=== PATIENT | female | born 1990 | race Caucasian/White ===

== ENCOUNTER 2017-01-12 13:51 | Observation (INO) | payer OTHER ==
[~2017-01-12] VITALS: Ht 160 cm; Wt 54.0 kg
[~2017-01-12 13:51] MED LIST: HYDR50TA94 PO; TRAZ100T4 PO; VIST50CA PO
[2017-01-12 14:29] VITALS: BP 130/86; PULSE 80; RESP 16; TEMP 98.5; O2SAT 98
[2017-01-12] MEDS ORDERED: SODIUM CHLOR 0.9% 1000 ML INJ 1,000 ML IV SCH (14:38)
[2017-01-12] MEDS ORDERED: CLINDAMYCIN INJ 600 MG in SODIUM CHLORIDE 0.9% INJ 100 ML IV ONE (14:45)
--- NOTE | 2017-01-12 14:45 | PD ---
HPI Chief Complaint: Medical Clearance Time Seen by Provider: 14:35 Travel History International Travel<30 days: No Contact w/Intl Traveler<30days: No Traveled to known affect area: No History of Present Illness HPI This patient was examined in the presence of female nurse. 26-year-old female with history of IV drug abuse presents under exparte initiated by banking specialist. According to the paperwork the patient has been depressed in regards to her drug abuse. She has been abusing drugs for almost 10 years according to her paperwork, was in treatment from July 2016 of October 2016 but she recently started using drugs again. She denies feeling suicidal but she does endorse depression secondary to her IV drug abuse. She is complaining of right forearm pain which started yesterday after she injected drugs and right forearm. Pain is aggravated by movements at the elbow. Denies any drainage, fevers or chills. No other complaints. PFSH Past Medical History Hx Anticoagulant Therapy: No ADHD: Yes Arthritis: No Asthma: No Blood Disorders: No Bipolar Disorder: Yes Anxiety: Yes Depression: Yes Heart Rhythm Problems: No Cancer: No Cardiovascular Problems: No High Cholesterol: No Chemotherapy: No Chest Pain: No Congestive Heart Failure: No COPD: No Cerebrovascular Accident: No Diabetes: No Diminished Hearing: No Endocrine: No Gastrointestinal Disorders: Yes GERD: No Genitourinary: No Hepatitis: Yes (C) Hiatal Hernia: No Heparin Induced Thrombocytopen: No Hypertension: No Immune Disorder: No Implanted Vascular Access Dvce: No Kidney Stones: No Musculoskeletal: No Neurologic: No Psychiatric: Yes (IVDA) Reproductive: No Respiratory: No Immunizations Current: No Migraines: No Radiation Therapy: No Renal Failure: No Seizures: No Sleep Apnea: No Thyroid Disease: No Ulcer: No PNEUMOCCOCAL Vaccine (Year): 2008 ?: Not LMP: 01/11/17 Menopausal: No : 2 Para: 1 Miscarriage: 0 : 1 Past Surgical History Abdominal Surgery: No Appendectomy: No Cardiac Surgery: No Cholecystectomy: No Ear Surgery: No Endocrine Surgery: No Eye Surgery: No Genitourinary Surgery: No Gynecologic Surgery: No Neurologic Surgery: No Oral Surgery: No Thoracic Surgery: No Other Surgery: No Social History Alcohol Use: No Tobacco Use: Yes (1 PPD) Substance Use: Yes (IV Dilaudid, crack ) Allergies-Medications (Allergen,Severity, Reaction): Coded Allergies: Vancomycin (Unverified Allergy, Severe, Itching, 09/30/16) *MDRO Multi-Drug Resistant Organism (Unverified Adverse Reaction, Severe, 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 SKIN: Warm and dry. Examination reveals multiple needle track meza to both forearms. There is some induration, edema to the skin of the right proximal forearm. There is tenderness to palpation. HEAD: Atraumatic. Normocephalic. EYES: Pupils equal and round. No scleral icterus. No injection or drainage. ENT: No nasal bleeding or discharge. Mucous membranes pink and moist. NECK: Trachea midline. No JVD. CARDIOVASCULAR: Regular rate and rhythm. No murmur appreciated. RESPIRATORY: No accessory muscle use. Clear to auscultation. Breath sounds equal bilaterally. GASTROINTESTINAL: Abdomen soft, non-tender, nondistended. Hepatic and splenic margins not palpable. MUSCULOSKELETAL: No obvious deformities. There is pain with flexion and extension at the right elbow with no obvious joint effusion. There is no axillary lymphadenopathy. 2+ radial pulse. Capillary refill less than 2 seconds all digits right hand. NEUROLOGICAL: Awake and alert. No obvious cranial nerve deficits. Motor grossly within normal limits. Normal speech. PSYCHIATRIC: Depressed, anxious, tearful. Data Data Last Documented VS Vital Signs Date Time Temp Pulse Resp B/P Pulse Ox O2 Delivery O2 Flow Rate FiO2 01/12/17 18:21 78 16 98 Room Air 01/12/17 14:29 98.5 130/86 Orders Complete Blood Count With Diff (01/12/17 14:38) Comprehensive Metabolic Panel (01/12/17 14:38) Ed Urine Pregnancytest Poc (01/12/17 14:38) Psych Screen (01/12/17 14:38) Drug Screen, Random Urine (01/12/17 14:38) Alcohol (Ethanol) (01/12/17 14:38) Lactic Acid Sepsis Protocol (01/12/17 14:38) Blood Culture (01/12/17 14:38) Sodium Chlor 0.9% 1000 Ml Inj (Ns 1000 M (01/12/17 14:38) Ct Forearm W Iv Contrast (01/12/17 ) Clindamycin Inj (Cleocin Inj) (01/12/17 14:45) Iohexol 350 Inj (Omnipaque 350 Inj) (01/12/17 16:56) Ondansetron Inj (Zofran Inj) (01/12/17 17:30) Ketorolac Inj (Toradol Inj) (01/12/17 17:45) Piperacil-Tazo 3.375 Gm Premix (Zosyn 3. (01/12/17 19:00) Us Arm Soft Tissue (01/12/17 ) Admit Order (Ed Use Only) (01/12/17 18:52) Labs Laboratory Tests Test 01/12/17 01/12/17 15:00 15:10 White Blood Count 4.5 TH/MM3 Red Blood Count 5.24 MIL/MM3 Hemoglobin 15.2 GM/DL Hematocrit 44.4 % Mean Corpuscular Volume 84.8 FL Mean Corpuscular Hemoglobin 29.0 PG Mean Corpuscular Hemoglobin 34.2 % Concent Red Cell Distribution Width 13.2 % Platelet Count 158 TH/MM3 Mean Platelet Volume 9.5 FL Neutrophils (%) (Auto) 63.5 % Lymphocytes (%) (Auto) 25.1 % Monocytes (%) (Auto) 10.5 % Eosinophils (%) (Auto) 0.6 % Basophils (%) (Auto) 0.3 % Neutrophils # (Auto) 2.9 TH/MM3 Lymphocytes # (Auto) 1.1 TH/MM3 Monocytes # (Auto) 0.5 TH/MM3 Eosinophils # (Auto) 0.0 TH/MM3 Basophils # (Auto) 0.0 TH/MM3 CBC Comment DIFF FINAL Differential Comment Sodium Level 140 MEQ/L Potassium Level 4.1 MEQ/L Chloride Level 107 MEQ/L Carbon Dioxide Level 27.2 MEQ/L Anion Gap 6 MEQ/L Blood Urea Nitrogen 7 MG/DL Creatinine 0.62 MG/DL Estimat Glomerular Filtration 118 ML/MIN Rate Random Glucose 96 MG/DL Calcium Level 9.1 MG/DL Total Bilirubin 0.4 MG/DL Aspartate Amino Transf 48 U/L (AST/SGOT) Alanine Aminotransferase 74 U/L (ALT/SGPT) Alkaline Phosphatase 69 U/L Total Protein 7.4 GM/DL Albumin 3.5 GM/DL Urine Opiates Screen POS Urine Barbiturates Screen NEG Urine Amphetamines Screen NEG Urine Benzodiazepines Screen NEG Urine Cocaine Screen POS Urine Cannabinoids Screen NEG Ethyl Alcohol Level LESS THAN 3 MG/DL Lactic Acid Level 1.1 mmol/L MDM Medical Decision Making Medical Screen Exam Complete: Yes Emergency Medical Condition: Yes Medical Record Reviewed: Yes Differential Diagnosis Abscess, cellulitis, IV infiltration, compartment syndrome Narrative Course 26 year old female history of IV drug abuse presents for medical clearance, under ex parte. She is complaining of right forearm pain since yesterday. She admits to IV drug abuse utilizing her right form. Examination reveals induration of the skin, needle track meza with no erythema of the skin itself. Plan is for basic lab work, CT of the forearm. Previous wound cultures on file here reveal MRSA susceptible to clindamycin. She is allergic to vancomycin. IV clindamycin has been ordered. CT reveals a 2 cm peripherally enhancing fluid collection in the biceps myotendinous junction likely representing an abscess with severe adjacent anterior superficial soft tissue edema. Therefore the patient will be admitted for IV antibiotic therapy. Discussed initially with hand surgeon Dr. Huynh who recommended ultrasound of the right arm, recommended orthopedist or general surgery as a consult in regards to the abscess. Discussed with on-call general surgeon Dr. Posada who recommends consult and hand surgery in regards to the abscess. Discussed with Dr. Mcbride the admitting physician who plans on consulting orthopedist as an inpatient. He is agreeable with admission. Physician Communication Physician Communication Discussed initially with hand surgeon Dr. Huynh who recommended ultrasound of the right arm, recommended orthopedist or general surgery as a consult in regards to the abscess. Discussed with on-call general surgeon Dr. Posada who recommends consult and hand surgery in regards to the abscess. Discussed with Dr. Mcbride the admitting physician who plans on consulting orthopedist as an inpatient. He is agreeable with admission. Diagnosis Primary Impression: Cellulitis of right upper extremity Additional Impression: Abscess of right upper extremity Admitting Information Admitting Physician Requests: Admit Lopez Huynh January 12, 2017 14:45 Physician Communication Physician Communication Discussed initially with hand surgeon Dr. Huynh who recommended ultrasound of the right arm, recommended orthopedist or general surgery as a consult in regards to the abscess. Discussed with on-call general surgeon Dr. Posada who recommends consult and hand surgery in regards to the abscess. Discussed with Dr. Mcbride the admitting physician who plans on consulting orthopedist as an inpatient. He is agreeable with admission. Diagnosis Primary Impression: Cellulitis of right upper extremity Additional Impression: Abscess of right upper extremity Admitting Information Admitting Physician Requests: Admit Lopez Huynh January 12, 2017 14:45
[2017-01-12 15:30] LABS: AUTOMATED NEUTROPHIL # 2.9 TH/MM3 (1.8-7.7); BASOPHIL % 0.3 % (0.0-2.0); EOSINOPHIL % 0.6 % (0.0-4.0); HEMATOCRIT 44.4 % (35.0-46.0); HEMO FLAGS DIFF FINAL; LYMPH % 25.1 % (9.0-44.0); LYMPHOCYTE # 1.1 TH/MM3 (1.0-4.8); MEAN CELL VOLUME 84.8 FL (80.0-100.0); MEAN CORPUSCULAR HGB CONC 34.2 % (32.0-36.0); MONO % 10.5 % (0.0-8.0); NEUT % 63.5 % (16.0-70.0); PLATELET COUNT 158 TH/MM3 (150-450); RED BLOOD COUNT 5.24 MIL/MM3 (4.00-5.30); RED CELL DISTRIBUTION WIDTH 13.2 % (11.6-17.2); WHITE BLOOD COUNT 4.5 TH/MM3 (4.0-11.0)
[2017-01-12 16:06] LABS: AMPHETAMINE, URINE NEG (NEG); BARBITURATES, URINE NEG (NEG); COCAINE, URINE POS (NEG)
[2017-01-12 16:13] LABS: ANION GAP 6 MEQ/L (5-15); AST (GOT) 48 U/L (15-37); BICARBONATE 27.2 MEQ/L (21.0-32.0); BLOOD UREA NITROGEN 7 MG/DL (7-18); CHLORIDE 107 MEQ/L (98-107); GLOMERULAR FILTRATION RATE 118 ML/MIN (>89); POTASSIUM 4.1 MEQ/L (3.5-5.1); SODIUM (NA) 140 MEQ/L (136-145)
[2017-01-12 16:15] LABS: ALT (GPT) 74 U/L (10-53)
[2017-01-12 16:17] LABS: ALKALINE PHOSPHATASE 69 U/L (45-117); TOTAL BILIRUBIN ADULT 0.4 MG/DL (0.2-1.0)
--- NOTE | 2017-01-12 16:43 | PD ---
Data Data Last Documented VS Vital Signs Date Time Temp Pulse Resp B/P Pulse Ox O2 Delivery O2 Flow Rate FiO2 01/12/17 14:29 98.5 80 16 130/86 98 Orders Complete Blood Count With Diff (01/12/17 14:38) Comprehensive Metabolic Panel (01/12/17 14:38) Ed Urine Pregnancytest Poc (01/12/17 14:38) Psych Screen (01/12/17 14:38) Drug Screen, Random Urine (01/12/17 14:38) Alcohol (Ethanol) (01/12/17 14:38) Lactic Acid Sepsis Protocol (01/12/17 14:38) Blood Culture (01/12/17 14:38) Sodium Chlor 0.9% 1000 Ml Inj (Ns 1000 M (01/12/17 14:38) Ct Forearm W Iv Contrast (01/12/17 ) Clindamycin Inj (Cleocin Inj) (01/12/17 14:45) Labs Laboratory Tests Test 01/12/17 01/12/17 15:00 15:10 White Blood Count 4.5 TH/MM3 Red Blood Count 5.24 MIL/MM3 Hemoglobin 15.2 GM/DL Hematocrit 44.4 % Mean Corpuscular Volume 84.8 FL Mean Corpuscular Hemoglobin 29.0 PG Mean Corpuscular Hemoglobin 34.2 % Concent Red Cell Distribution Width 13.2 % Platelet Count 158 TH/MM3 Mean Platelet Volume 9.5 FL Neutrophils (%) (Auto) 63.5 % Lymphocytes (%) (Auto) 25.1 % Monocytes (%) (Auto) 10.5 % Eosinophils (%) (Auto) 0.6 % Basophils (%) (Auto) 0.3 % Neutrophils # (Auto) 2.9 TH/MM3 Lymphocytes # (Auto) 1.1 TH/MM3 Monocytes # (Auto) 0.5 TH/MM3 Eosinophils # (Auto) 0.0 TH/MM3 Basophils # (Auto) 0.0 TH/MM3 CBC Comment DIFF FINAL Differential Comment Sodium Level 140 MEQ/L Potassium Level 4.1 MEQ/L Chloride Level 107 MEQ/L Carbon Dioxide Level 27.2 MEQ/L Anion Gap 6 MEQ/L Blood Urea Nitrogen 7 MG/DL Creatinine 0.62 MG/DL Estimat Glomerular Filtration 118 ML/MIN Rate Random Glucose 96 MG/DL Calcium Level 9.1 MG/DL Total Bilirubin 0.4 MG/DL Aspartate Amino Transf 48 U/L (AST/SGOT) Alanine Aminotransferase 74 U/L (ALT/SGPT) Alkaline Phosphatase 69 U/L Total Protein 7.4 GM/DL Albumin 3.5 GM/DL Urine Opiates Screen POS Urine Barbiturates Screen NEG Urine Amphetamines Screen NEG Urine Benzodiazepines Screen NEG Urine Cocaine Screen POS Urine Cannabinoids Screen NEG Ethyl Alcohol Level LESS THAN 3 MG/DL Lactic Acid Level 1.1 mmol/L MDM Supervised Visit with FAIZA: Yes Narrative Course The history, exam, and medical decision-making in the associated mid-level provider note were completed with my assistance. I reviewed and agree with the findings presented. I attest that I had a [id number] encounter with the patient on the same day, and personally performed and documented my assessment and findings in the medical record. *My assessment and Findings: 26 year-old woman, active IV drug use, presents for medical clearance following ex parte today. She has pain tenderness and swelling in her right arm where she was injecting. She has tenderness on the volar proximal forearm. There is no significant erythema or redness or warmth. There is no obvious fluctuance or abscess. We'll check labs, CT imaging, if negative recommend antibiotics and outpatient follow-up. She'll be medically cleared for substance abuse treatment. Procedures Procedure Narrative Ultrasound-guided peripheral IV: Nursing staff was unable to establish IV access. Patient's history of active IV drug use. Left forearm was prepped with chlorhexidine. Initial attempt was made in the volar forearm however patient stated it was too painful so it was removed. Second attempt was in the distal medial brachium. Successful placement of 20-gauge angiocatheter. Patient tolerated overall well. Fredy Woods MD January 12, 2017 16:43
[2017-01-12] MEDS ORDERED: IOHEXOL 350 MG/ML 10 ML VIAL (for RAD DIAG) IV ONE (16:56)
[2017-01-12] MEDS ORDERED: ONDANSETRON HCL 4 MG/2 ML VIAL IV PUSH ONE (17:30)
[2017-01-12] MEDS ORDERED: KETOROLAC TROMETHAMINE 30 MG/ML (IVP) VIAL IV PUSH ONE (17:45)
--- NOTE | 2017-01-12 18:05 | RADRPT ---
EXAM DATE/TIME: 01/12/2017 16:32 [facility] COMPARISON: No previous studies available for comparison. INDICATIONS : Right arm pain. IV CONTRAST: 75 cc Omnipaque 350 (iohexol) IV RADIATION DOSE: 13.29 CTDIvol (mGy) MEDICAL HISTORY : Hepatitis C. SURGICAL HISTORY : None. ENCOUNTER: Initial ACUITY: 1 day PAIN SCALE: 7/10 LOCATION: Right forearm. TECHNIQUE: Volumetric scanning of the forearm was performed. Using automated exposure control and adjustment of the mA and/or kV according to patient size, radiation dose was kept as low as reasonably achievable to obtain optimal diagnostic quality images. FINDINGS: Ill-defined superficial soft tissue edema anteriorly. 1.5 x 1.5 x 2.0 cm peripherally enhancing fluid collection at the anterior margin of the distal biceps muscle, just anterior to the proximal biceps tendon. This likely represent an abscess. All of the other muscles and tendons are within normal limi ts. Osseous structures within normal limits. CONCLUSION: 2.0 cm peripherally enhancing fluid collection the biceps myotendinous junction likely represent absc ess with severe adjacent anterior superficial soft tissue edema. Khanh Palma MD on January 12, 2017 at 17:58 Board Certified Radiologist. This report was verified electronically.
[2017-01-12 18:21] VITALS: PULSE 78; RESP 16; O2SAT 98
[2017-01-12] MEDS ORDERED: MAGNESIUM HYDROXIDE SUSP 30 ML CUP PO PRN (19:00)
[2017-01-12] MEDS ORDERED: DAPTOmycin INJ 0 MG in SODIUM CHLORIDE 0.9% INJ 100 ML IV SCH (19:00)
[2017-01-12] MEDS ORDERED: SODIUM CHLORIDE 0.9% FLUSH 10 ML FLUSH IV FLUSH PRN (19:00)
[2017-01-12] MEDS ORDERED: ONDANSETRON HCL 4 MG/2 ML VIAL IVP PRN (19:00)
[2017-01-12] MEDS ORDERED: PIPERACIL-TAZO 3.375 GM PREMIX 50 ML IV ONE (19:00)
[2017-01-12] MEDS ORDERED: SENNOSIDES 8.6 MG TAB PO PRN (19:00)
[2017-01-12] MEDS ORDERED: BISACODYL 10 MG SUPP RECTAL PRN (19:00)
[2017-01-12] MEDS ORDERED: NALOXONE HCL 0.4 MG/ML AMP IV PRN (19:00)
[2017-01-12] MEDS ORDERED: LACTULOSE SYRUP 20 GM/30 ML CUP PO PRN (19:00)
[2017-01-12 19:44] VITALS: PULSE 69; RESP 16; O2SAT 98
[2017-01-12 19:47] VITALS: BP 126/83; PULSE 78
[2017-01-12] MEDS ORDERED: cloNIDine HCL 0.1 MG TAB PO ONE (20:00)
--- NOTE | 2017-01-12 20:15 | RADRPT ---
EXAM DATE/TIME: 01/12/2017 19:45 [facility] COMPARISON: US ARM RIGHT, November 01, 2014, 7:54. INDICATIONS : Right arm abscess. MEDICAL HISTORY : Hepatitis C. ADHD. Bipolar disorder. Depression. Anxiety. IV drug use. Tobacco use. SURGICAL HISTORY : None. ENCOUNTER: Initial ACUITY: 2 days PAIN SCORE: 5/10 LOCATION: Right arm. AREA EVALUATED: Right antecubital fossa. FINDINGS: Sonographic evaluation of the antecubital fossa shows no abscess. Subcutaneous edema noted. 2 small l ymph nodes observed. Venous structures show normal compressibility. CONCLUSION: Edema without abscess. Enrico Brito Jr., MD on January 12, 2017 at 20:12 Board Certified Radiologist. This report was verified electronically.
[2017-01-12] MEDS: HEPARIN SODIUM - SQ 10,000 UNITS/ML VIAL SQ SCH (20:19)
[2017-01-12] MEDS: DOCUSATE SODIUM 50 MG/SENNA 8.6 MG TAB PO SCH (21:00)
[2017-01-12] MEDS ORDERED: DAPTOmycin INJ 300 MG in SODIUM CHLORIDE 0.9% INJ 100 ML IV SCH (21:00)
[2017-01-12 21:15] VITALS: BP 118/71
[2017-01-12 21:44] VITALS: BP 113/62; PULSE 62; RESP 17; TEMP 96.4; O2SAT 97
[2017-01-12] MEDS: SODIUM CHLORIDE 0.9% FLUSH 10 ML FLUSH IV FLUSH SCH (22:48)
[2017-01-13] MEDS ORDERED: traZODone HCL 100 MG TAB PO ONE
[2017-01-13 00:08] VITALS: BP 108/63; PULSE 68; RESP 17; TEMP 97; O2SAT 98
[2017-01-13] MEDS: ACETAMINOPHEN 325 MG TAB PO PRN (01:46)
[2017-01-13 08:00] VITALS: BP 116/79; PULSE 78; RESP 18; TEMP 97.2; O2SAT 99
[2017-01-13] MEDS: HEPARIN SODIUM - SQ 10,000 UNITS/ML VIAL SQ SCH ×2 (08:00→20:00)
[2017-01-13] MEDS: SODIUM CHLORIDE 0.9% FLUSH 10 ML FLUSH IV FLUSH SCH ×2 (09:00→18:45)
[2017-01-13] MEDS: DOCUSATE SODIUM 50 MG/SENNA 8.6 MG TAB PO SCH ×2 (09:00→20:51)
--- NOTE | 2017-01-13 09:12 | MB ---
cc: XI PACHECO DATE OF CONSULTATION 01/13/2017 CHIEF COMPLAINT Right arm pain and swelling. HISTORY OF PRESENT ILLNESS The patient is a 26-year-old white female with significant history of IV drug who was brought to the emergency department under a court order by a carton maker. She states significant history of IV drug use. She reports that she was clean between July 2016 and October of 2016 and undergoing treatment. However, she has had a recent relapse. She says she has been abusing drugs for almost 10 years and states that her right forearm started hurting one to two days ago after she injected drugs into the right arm. She denies any history of infection like this. However, she reports that she has a history of MRSA. She states that her arm hurts when she moves it. Denies any drainage, fever or chills. She reports over the past day since antibiotics have begun, that she has had significant improvement. She states that the pain has decreased significantly. She reports she is back to achieving full motion and has limited pain with palpation. Overall she feels that she is doing well as resting comfortably. PAST MEDICAL HISTORY Positive for - 1. Bipolar disorder. 2. Anxiety, depression. 3. GI disorders. 4. Hepatitis C. 5. IV drug use. PAST SURGICAL HISTORY None. SOCIAL HISTORY A current smoker and smokes one pack per day and admits to substance abuse using IV Dilaudid and crack. PAST MEDICAL HISTORY Noncontributory. ALLERGIES TO MEDICATIONS VANCOMYCIN. MDRO. MRSA. REPORTED MEDICATIONS 1. Vistaril. 2. Trazodone. 3. Hydroxyzine. For complete list of he was inpatient meds, see MAR. REVIEW OF SYSTEMS Complete nine-point review of systems was completed and negative except for what is in the HPI. PHYSICAL EXAMINATION GENERAL: Well-developed, well-nourished 26-year-old female who is resting comfortably and sleeping. HEAD: Normocephalic, atraumatic. EYES: Extraocular motions intact. Pupils equal, round, reactive to light. CRANIAL NERVES II-XII: Grossly intact. EARS: Hearing intact bilaterally. NECK: Supple. No evidence of lymphadenopathy. LUNGS: No use of accessory muscles while breathing and no audible wheezes at bedside. ABDOMEN: Soft and nontender. HEART: No grade 4 murmur present. MUSCULOSKELETAL: Right upper extremity with full motion of the shoulder, wrist and fingers and no pain. She does have full flexion and extension of the elbow with no pain. She has visible track meza along the right forearm and antecubital space. She has mild evidence of induration over the antecubital fossa. However, it is nontender. There is swelling present. There is no erythema present. No drainage present. No fluctuance noted. She has full sensation in median and ulnar nerve distributions and has full radial nerve function Left upper extremity with full motion of the shoulder, elbow, wrist and fingers and no pain with full sensation distally. Bilateral lower extremities with full motion of the hips, knees, ankles and toes and no pain with full sensation distally. IMAGING CT scan was performed of the right forearm which reveals a 2-cm possible abscess along the biceps tendon. ASSESSMENT Possible cellulitis versus abscess of the right forearm. PLAN Due to the patient's improving status and minimal discomfort and pain, I would recommend continued conservative treatment with antibiotics. At this I do not think surgical debridement is necessary. I would monitor the patient's progress with the antibiotics and if she continues to improve, would continue with antibiotic treatment with nonsurgical intervention. However, if the patient starts to progress or get worse, I would consider irrigation and debridement of the right forearm. We will follow along. As long as she is improving, nonsurgical intervention would be appropriate. Thank you for this consultation. The above dictation and the patient was reviewed and discussed with Dr. Pacheco and he does agree with the above dictation. Dictated by: Carlitos Villa PA-C Carlitos SHOEMAKER/NAREN /8:14 AM /9:01 AM
--- NOTE | 2017-01-13 10:07 | HHI.HP ---
HPI Service [facility] Hospitalists Primary Care Physician SUZY Preciado Admission Diagnosis right arm abscess, cellulitis Diagnoses: Chief Complaint: "I don;t have any arm pain this morning." Travel History International Travel<30 Days: No Contact w/Intl Traveler <30 Da: No Traveled to Known Affected Are: No History of Present Illness Ms. Goodwin is 26 yo with history of IV drug use. She denied other medical history. Ms. Goodwin was court ordered for evaluation to [facility]. Per medical records she has a 10 year history of drug abuse. She reportedly was in rehab treatment from July 2016 until October 2016. Per medical record she became depressed after recent relapse. Per records pt recently has resumed use and had identified injecting Dilaudid and crack cocaine. Medical records indicated pt developed right arm pain two days before coming to [facility] ED. Patient was encountered in her hospital room. She was awakened and said she did not have pain and declined to participate in the interview and exam process. She stated "I haven;t slept all night, can you come back later" and got up and went into the bathroom. She came back a few moments later and again asked to be seen later. When told this could not happen she laid on her left side, and minimally answered questions and allowed limited examination. She denied other health issues and denied needing to take medication for other issues. As such, a complete history and 10 pt ROS could not be obtained. Review of Systems ROS Limitations: Uncooperative, Refused Past Family Social History Past Medical History Per medical record pt has: ADHD Bipolar disorder Hepatitis C GI issues Anxiety and depression. Past Surgical History None reported. Reported Medications Pt denied home medications. Allergies: Coded Allergies: Vancomycin (Unverified Allergy, Severe, Itching, 09/30/16) *MDRO Multi-Drug Resistant Organism (Unverified Adverse Reaction, Severe, 09/30/16) MRSA Active Ordered Medications Current Medications Medications (Trade) Dose Ordered Sig/Kenrick Route Start Time Stop Time Status Last Admin (NS Flush) 2 ml UNSCH PRN IV FLUSH 01/12/17 19:00 (NS Flush) 2 ml BID IV FLUSH 01/12/17 21:00 01/12/17 22:48 (Tylenol) 650 mg Q4H PRN PO 01/12/17 19:00 01/13/17 01:46 (Zofran Inj) 4 mg Q6H PRN IVP 01/12/17 19:00 (Heparin Inj) 5,000 units Q12H SQ 01/12/17 20:00 01/12/17 20:19 (Narcan Inj) 0.4 mg UNSCH PRN IV 01/12/17 19:00 (Maryan-Colace) 1 tab BID PO 01/12/17 21:00 (Milk Of Magnesia Liq) 30 ml Q12H PRN PO 01/12/17 19:00 (Senokot) 17.2 mg Q12H PRN PO 01/12/17 19:00 (Dulcolax Supp) 10 mg DAILY PRN RECTAL 01/12/17 19:00 Lactulose 30 ml 30 ml DAILY PRN PO 01/12/17 19:00 (Cubicin Inj/NS Inj) 100 ml @ 200 mls/hr Q24H IV 01/12/17 21:00 01/12/17 22:48 Family History Pt refused to participate. Social History 10 year history of IV drug abuse-reportedly Dilaudid and Crack cocaine use. Reported to smoke 1 pack of cigarettes a day, onset age unknown. Alcohol use is denied. Physical Exam Vital Signs Vital Signs Date Time Temp Pulse Resp B/P Pulse Ox O2 Delivery O2 Flow Rate FiO2 01/13/17 08:00 97.2 78 18 116/79 99 01/13/17 00:08 97.0 68 17 108/63 98 01/12/17 21:44 96.4 62 17 113/62 97 01/12/17 21:15 68 18 118/71 98 01/12/17 19:47 78 126/83 01/12/17 19:44 69 16 98 Room Air 01/12/17 18:21 78 16 98 Room Air 01/12/17 14:29 98.5 80 16 130/86 98 Physical Exam GENERAL: This is a well-nourished, well-developed patient, in no apparent respiratory distress. SKIN: Right form arm slightly swollen, warm to the touch. Healing ecchymoses noted. Tattoos noted on various parts of her body. HEAD: Atraumatic. Normocephalic. EYES: Pupils equal round and reactive. No injection or drainage. ENT: Nose without bleeding, purulent drainage. Airway patent. NECK: Trachea midline. No meningeal signs. CARDIOVASCULAR: Regular rate and rhythm without murmurs, gallops, or rubs. RESPIRATORY: Clear to auscultation. Breath sounds equal bilaterally. No wheezes , rales, or rhonchi. GASTROINTESTINAL: Pt declined examination. MUSCULOSKELETAL: Right arm was examined, pt could bend forearm without pain. Pt noted she was unable to do so earlier in the week. Pt observed to walk to bathroom without difficulty and unassisted. NEUROLOGICAL: Pt encountered laying a bed, sleeping. She was easily woken. Agitated as evidenced by her terse comments and denial of examination and participation. Motor function grossly intact. Speech clear and fluent. Laboratory Laboratory Tests Test 01/12/17 01/12/17 15:00 15:10 White Blood Count 4.5 Red Blood Count 5.24 Hemoglobin 15.2 Hematocrit 44.4 Mean Corpuscular Volume 84.8 Mean Corpuscular Hemoglobin 29.0 Mean Corpuscular Hemoglobin 34.2 Concent Red Cell Distribution Width 13.2 Platelet Count 158 Mean Platelet Volume 9.5 Neutrophils (%) (Auto) 63.5 Lymphocytes (%) (Auto) 25.1 Monocytes (%) (Auto) 10.5 Eosinophils (%) (Auto) 0.6 Basophils (%) (Auto) 0.3 Neutrophils # (Auto) 2.9 Lymphocytes # (Auto) 1.1 Monocytes # (Auto) 0.5 Eosinophils # (Auto) 0.0 Basophils # (Auto) 0.0 CBC Comment DIFF FINAL Differential Comment Sodium Level 140 Potassium Level 4.1 Chloride Level 107 Carbon Dioxide Level 27.2 Anion Gap 6 Blood Urea Nitrogen 7 Creatinine 0.62 Estimat Glomerular Filtration 118 Rate Random Glucose 96 Calcium Level 9.1 Total Bilirubin 0.4 Aspartate Amino Transf 48 (AST/SGOT) Alanine Aminotransferase 74 (ALT/SGPT) Alkaline Phosphatase 69 Total Protein 7.4 Albumin 3.5 Urine Opiates Screen POS Urine Barbiturates Screen NEG Urine Amphetamines Screen NEG Urine Benzodiazepines Screen NEG Urine Cocaine Screen POS Urine Cannabinoids Screen NEG Ethyl Alcohol Level LESS THAN 3 Lactic Acid Level 1.1 Date/Time Procedure Status Source Growth 5/31/17 15:40 Aerobic Blood Culture Received Blood Peripheral Pending 01/12/17 15:40 Anaerobic Blood Culture Received Blood Peripheral Pending Result Diagram: 01/12/17 1500 01/12/17 1500 Imaging Last Impressions Upper Extremity Ultrasound 01/12/17 0000 Signed Impressions: Service Date/Time: Thursday, January 12, 2017 19:45 - CONCLUSION: Edema without abscess. Enrico Brito Jr., MD Upper Extremity CT 01/12/17 0000 Signed Impressions: Service Date/Time: Tuesday, January 12, 2017 16:32 - CONCLUSION: 2.0 cm peripherally enhancing fluid collection the biceps myotendinous junction likely represent abscess with severe adjacent anterior superficial soft tissue edema. Khanh Palma MD Assessment and Plan Problem List: (1) Cellulitis of right upper extremity ICD Code: L03.113 Status: Acute (2) Abscess of right upper extremity ICD Code: L02.413 Status: Acute (3) IV drug abuse ICD Code: F19.10 Status: Chronic (4) Nicotine dependence ICD Code: F17.200 Status: Acute Assessment and Plan Ms. Goodwin is 26 yo with history of IV drug use. She denied other medical history. Cellulitis of right upper extremity Abscess of the right upper extremity -Daptomycin 300 mg IV q 24 hours -warm compresses to effected area -Tylenol 650 mg po q 6hrs for pain -Labs personally reviewed from 01/12/17, elevations noted on ALT and AST, otherwise labs with WNL. -Pt declined lab draw on the morning of 01/13/17. She also declined IV access. Discussed with RN, further attempts to be made to obtain labs and IV access. -Will transition pt to oral agents as soon as possible. -Discussed case with Dr. Leblanc who advised pt be admitted for observation; order placed. IV drug Abus -Will need to watch for signs/symptoms of withdrawal from opiates and Crack cocaine. -As pt is admitted under ex parte order, psychiatry has been consulted. Nicotine dependence -Transdermal nicotine patch 21 mg q day. DVT prophylaxis: Heparin 5000 units q 12 hrs Diet: Regular Discharge: To be determined but in consideration of her court order. Attestation Patient seen and examined with Johnathan Coe PA-C. The exam, history, and the medical decision-making described in the above note were completed with the assistance of the dictating practitioner. I attest that I had a [id number] encounter with the patient on the same day, and personally performed all of the history, exam, or medical decision making. Discussed case with him thoroughly after seeing the patient, reviewed and agreed with the plan. Please see addendum in History, Physical examination and Plan. See below for any errata/ additional input: This is a 26-year-old female with history of IV drug use, presenting as an ex parte. Poor historian, presenting with right upper extremity pain for 2 days. No fever or chills. Not in distress Afebrile Right arm, mild tenderness on palpation, good range of motion with elbow flexion and extension, no palpable abscess, induration or warmth. Agree with infectious disease consultation, consult psychiatry. Seen by orthopedics, no need for surgery. Discussed with infectious disease, switched to Zyvox. Possible discharge in 1-2 days if okay with surgery and infectious disease. Discussed Condition With Pt, sitter at bedside, RN, and Dr. Leblanc. Physician Certification 2 Midnight Certification Type: Admission for Inpatient Services Order for Inpatient Services The services are ordered in accordance with Medicare regulations or non- Medicare payer requirements, as applicable. In the case of services not specified as inpatient-only, they are appropriately provided as inpatient services in accordance with the 2-midnight benchmark. Estimated LOS (days): 3 Three days is the estimated time the patient will need to remain in the hospital , assuming treatment plan goals are met and no additional complications. Post-Hospital Plan: Not yet determined Problem Qualifiers (1) Nicotine dependence: Qualified Code: F17.210 - Cigarette nicotine dependence without complication Andrew Lee Jr. Jan 13, 2017 10:07 Natalio Leblanc MD Jan 13, 2017 17:49
[2017-01-13] MEDS: NICOTINE 21 MG/24 HR PATCH T-DERMAL SCH (10:45)
[2017-01-13] MEDS ORDERED: REMOVE OLD PATCH T-DERMAL ONE (10:45)
[2017-01-13 12:00] VITALS: BP 118/84; PULSE 74; RESP 19; TEMP 96.2; O2SAT 94
[2017-01-13 16:00] VITALS: BP 124/72; PULSE 69; RESP 17; TEMP 96.5; O2SAT 99
--- NOTE | 2017-01-13 16:16 | PD.ID.CON ---
History of Present Illness Service ID Consult Requested By Reason for Consult Evaluation and Mment of possible abscess right upper extremity. Primary Care Physician SUZY Preciado Diagnoses: History of Present Illness Patient was not cooperative and therefore history, P exam and ROS is limited. History obtained by review of medical records. Ms. Goodwin was court ordered for evaluation to [facility]. Per medical records she has a 10 year history of drug abuse. She reportedly was in rehab treatment from July 2016 until October 2016. Per medical record she became depressed after recent relapse. Per records pt recently has resumed use and had identified injecting Dilaudid and crack cocaine. Medical records indicated pt developed right arm pain two days before coming to [facility] ED. ID consulted for evaluation and Mment of possible abscess RUE. Review of Systems ROS Limitations: Uncooperative, Poor Historian Past Family Social History Allergies: Coded Allergies: Vancomycin (Unverified Allergy, Severe, Itching, 09/30/16) *MDRO Multi-Drug Resistant Organism (Unverified Adverse Reaction, Severe, 09/30/16) MRSA Past Medical History ADHD Bipolar disorder Hepatitis C GI issues Anxiety and depression. Multiple abscesses of skin soft tissue. Past Surgical History ? I&D of multiple abscesses. Reported Medications Reported Meds & Active Scripts Active Reported Vistaril (Hydroxyzine Pamoate) 50 Mg Cap 50 Mg PO BID Trazodone (Trazodone HCl) 100 Mg Tab 100 Mg PO HS Hydroxyzine HCl 50 Mg Tab 50 Mg PO BID Active Ordered Medications Current Medications Medications (Trade) Dose Ordered Sig/Kenrick Route Start Time Stop Time Status Last Admin (NS Flush) 2 ml UNSCH PRN IV FLUSH 01/12/17 19:00 (NS Flush) 2 ml BID IV FLUSH 01/12/17 21:00 01/12/17 22:48 (Tylenol) 650 mg Q4H PRN PO 01/12/17 19:00 01/13/17 01:46 (Zofran Inj) 4 mg Q6H PRN IVP 01/12/17 19:00 (Heparin Inj) 5,000 units Q12H SQ 01/12/17 20:00 01/12/17 20:19 (Narcan Inj) 0.4 mg UNSCH PRN IV 01/12/17 19:00 (Maryan-Colace) 1 tab BID PO 01/12/17 21:00 (Milk Of Magnesia Liq) 30 ml Q12H PRN PO 01/12/17 19:00 (Senokot) 17.2 mg Q12H PRN PO 01/12/17 19:00 (Dulcolax Supp) 10 mg DAILY PRN RECTAL 01/12/17 19:00 Lactulose 30 ml 30 ml DAILY PRN PO 01/12/17 19:00 (Cubicin Inj/NS Inj) 100 ml @ 200 mls/hr Q24H IV 01/12/17 21:00 01/12/17 22:48 (Habitrol 21 Mg Patch.24 Hr) 1 patch DAILY T-DERMAL 01/13/17 10:45 Miscellaneous Information 1 HS T-DERMAL 01/13/17 21:00 Family History non contributory Social History 10 year history of IV drug abuse-reportedly Dilaudid and Crack cocaine use. Reported to smoke 1 pack of cigarettes a day, onset age unknown. Alcohol use is denied. Physical Exam Vital Signs Vital Signs Date Time Temp Pulse Resp B/P Pulse Ox O2 Delivery O2 Flow Rate FiO2 01/13/17 12:00 96.2 74 19 118/84 94 01/13/17 08:00 97.2 78 18 116/79 99 01/13/17 00:08 97.0 68 17 108/63 98 01/12/17 21:44 96.4 62 17 113/62 97 01/12/17 21:15 68 18 118/71 98 01/12/17 19:47 78 126/83 01/12/17 19:44 69 16 98 Room Air 01/12/17 18:21 78 16 98 Room Air Physical Exam GENERAL: This is a well-nourished, well-developed patient, in no apparent distress. SKIN: Track meza. Left UE with small coin shaped area of redness of forearm and track meza noted. ROM ok. HEAD: Atraumatic. Normocephalic. No temporal or scalp tenderness. EYES: Pupils equal round and reactive. Extraocular motions intact. No scleral icterus. No injection or drainage. ENT: Nose without bleeding, purulent drainage or septal hematoma. Throat without erythema, tonsillar hypertrophy or exudate. Uvula midline. Airway patent. NECK: Trachea midline. No JVD or lymphadenopathy. Supple, nontender, no meningeal signs. CARDIOVASCULAR: Regular rate and rhythm without murmurs, gallops, or rubs. RESPIRATORY: Clear to auscultation. Breath sounds equal bilaterally. No wheezes , rales, or rhonchi. GASTROINTESTINAL: Abdomen soft, non-tender, nondistended. MUSCULOSKELETAL: Extremities without clubbing, cyanosis, or edema. NEUROLOGICAL: Awake and alert. Grossly non focal Psych: cooperative IV line sites with no e.o infection. Laboratory Date/Time Procedure Status Source Growth 01/12/17 15:40 Aerobic Blood Culture - Preliminary Resulted Blood Peripheral NO GROWTH IN 1 DAY 01/12/17 15:40 Anaerobic Blood Culture - Preliminary Resulted Blood Peripheral NO GROWTH IN 1 DAY Result Diagram: 01/12/17 1500 01/12/17 1500 Imaging Last Impressions Upper Extremity Ultrasound 01/12/17 0000 Signed Impressions: Service Date/Time: Thursday, January 12, 2017 19:45 - CONCLUSION: Edema without abscess. Enrico Brito Jr., MD Upper Extremity CT 01/12/17 0000 Signed Impressions: Service Date/Time: Thursday, January 12, 2017 16:32 - CONCLUSION: 2.0 cm peripherally enhancing fluid collection the biceps myotendinous junction likely represent abscess with severe adjacent anterior superficial soft tissue edema. Khanh Palma MD Assessment and Plan Assessment and Plan Right UE abscess/cellulitis. IVDA Recs DC Dapto IV Start Oral zyvox Follow cultures Follow clinically. Ok to leave IV line out as at risk of using drugs in hospital. Rashaun Mcgraw. Brianna Haddad MD Jan 13, 2017 16:16
[2017-01-13] MEDS: REMOVE OLD PATCH T-DERMAL SCH (18:46)
[2017-01-13] MEDS: LINEZOLID 600 MG TAB PO SCH (21:14)
[2017-01-13] MEDS: traZODone HCL 100 MG TAB PO SCH (22:09)
--- NOTE | 2017-01-14 07:41 | PD.ORT.PN ---
Subjective Subjective Remarks Zoya was seen and examined today. She has a history of right elbow pain and swelling. She states that she currently has minimal pain. She is able to move her elbow without discomfort. Her swelling and pain is significantly improved with antibiotics. Objective Vitals Vital Signs Date Time Temp Pulse Resp B/P Pulse Ox O2 Delivery O2 Flow Rate FiO2 01/13/17 16:00 96.5 69 17 124/72 99 01/13/17 12:00 96.2 74 19 118/84 94 01/13/17 08:00 97.2 78 18 116/79 99 I/O 01/13/17 01/13/17 01/13/17 01/14/17 01/14/17 01/14/17 07:00 15:00 23:00 07:00 15:00 23:00 Intake Total 380 ml 0 ml 240 ml 360 ml Balance 380 ml 0 ml 240 ml 360 ml Intake Oral 280 ml 0 ml 240 ml 360 ml IV Total 100 ml # Voids 3 4 3 3 # Bowel Movements 0 0 0 Result Diagram: 01/12/17 1500 01/12/17 1500 Objective Remarks Examination of right arm reveals no pain with shoulder, elbow, or wrist motion. There is no fluctuance noted. She has no tenderness along the biceps tendon or antecubital fossa. She has minimal swelling. She has intact sensation in all fingers. Assessment & Plan Assessment and Plan Zoya is improving significantly with antibiotics. MRI did show a small area of fluid around the biceps tendon. Clinically she has no pain or tenderness in this area. There is no evidence of fluctuance in this region. At this point I would recommend continued conservative treatment with antibiotics. If the swelling worsens and she develops fluctuance, surgical drainage may become necessary. All questions were answered. Dayron Myers MD Jan 14, 2017 07:41
[2017-01-14 08:00] VITALS: BP 109/76; PULSE 64; RESP 16; TEMP 97.8; O2SAT 98
[2017-01-14] MEDS: HEPARIN SODIUM - SQ 10,000 UNITS/ML VIAL SQ SCH ×2 (08:00→20:00)
[2017-01-14] MEDS: DOCUSATE SODIUM 50 MG/SENNA 8.6 MG TAB PO SCH ×2 (08:49→21:00)
[2017-01-14] MEDS: LINEZOLID 600 MG TAB PO SCH ×2 (08:49→23:13)
[2017-01-14] MEDS: NICOTINE 21 MG/24 HR PATCH T-DERMAL SCH (08:50)
[2017-01-14] MEDS: REMOVE OLD PATCH T-DERMAL SCH (08:50)
[2017-01-14] MEDS: SODIUM CHLORIDE 0.9% FLUSH 10 ML FLUSH IV FLUSH SCH ×2 (08:50→21:00)
--- NOTE | 2017-01-14 11:43 | PD.CONS ---
Provisional Diagnosis Admission Date January 12, 2017 at 18:53 [place] I. Opiate use disorder [place] II. Deferred [place] III. Cellulitis History of Present Illness Service Psychiatry Consult Requested By Primary Care Physician SUZY Preciado The patient is a 26-year-old woman, domicile with her mother in [place], unemployed, single, with extensive history of IV opioids use disorder, no significant psychiatric history, no psychiatric hospitalizations, no suicide attempts. She reportedly was in rehab treatment from July 2016 until October 2016. Per medical record she became depressed after recent relapse. Per records pt recently has resumed use and had identified injecting Dilaudid and crack cocaine. Medical records indicated pt developed right arm pain two days before coming to [facility] ED. admitted this time due to Cellulitis of right upper extremity, Abscess of the right upper extremity, treated with Daptomycin 300 mg IV q 24 hours and warm compresses to effected area. Consulted to psychiatry because patient is a Mikael omalley. On psychiatric evaluation today patient is found sleeping, at the beginning very oppositional, resistant, reluctant to cooperate with a psychiatric evaluation. She repeatedly stated that she doesn't need to see a psychiatrist. With redirection patient becomes a little more open. She is states that she is here due to her cellulitis. She denies depressive symptoms, she denies hopelessness , she denies helplessness, she denies suicidal or homicidal ideation, she denies visual and auditory hallucinations. Patient declines to talk about quantification in qualification of drug use. She says that she is already in a rehabilitation program. Review of Systems Constitutional: DENIES: Diaphoretic episodes, Fatigue, Fever, Weight gain, Weight loss, Chills, Dizziness, Change in appetite, Night Sweats Eyes: DENIES: Blurred vision, Diplopia, Eye inflammation, Eye pain, Vision loss , Photosensitivity, Double Vision Ears, nose, mouth, throat: DENIES: Tinnitus, Hearing loss, Vertigo, Nasal discharge, Oral lesions, Throat pain, Hoarseness, Ear Pain, Running Nose, Epistaxis, Sinus Pain, Toothache, Odynophagia Respiratory: DENIES: Apneas, Cough, Snoring, Wheezing, Hemoptysis, Sputum production, Shortness of breath Cardiovascular: DENIES: Chest pain, Palpitations, Syncope, Dyspnea on Exertion , PND, Lower Extremity Edema, Orthopnea, Claudication Gastrointestinal: DENIES: Abdominal pain, Black stools, Bloody stools, Constipation, Diarrhea, Nausea, Vomiting, Difficulty Swallowing, Anorexia Genitourinary: DENIES: Abnormal vaginal bleeding, Dysmenorrhea, Dyspareunia, Sexual dysfunction, Urinary frequency, Urinary incontinence, Urgency, Hematuria , Dysuria, Nocturia, Vaginal discharge Musculoskeletal: DENIES: Joint pain, Muscle aches, Stiffness, Joint Swelling, Back pain, Neck pain Integumentary: DENIES: Abnormal pigmentation, Pruritus, Rash, Nail changes, Breast masses, Breast skin changes, Nipple discharge Hematologic/lymphatic: DENIES: Bruising, Lymphadenopathy Immunologic/allergic: DENIES: Eczema, Urticaria Neurologic: DENIES: Abnormal gait, Headache, Localized weakness, Paresthesias, Seizures, Speech Problems, Tremor, Poor Balance Psychiatric: DENIES: Anxiety, Confusion, Mood changes, Depression, Hallucinations, Agitation, Suicidal Ideation, Homicidal Ideation, Delusions Past Family Social History Coded Allergies: Vancomycin (Unverified Allergy, Severe, Itching, 09/30/16) *MDRO Multi-Drug Resistant Organism (Unverified Adverse Reaction, Severe, 09/30/16) MRSA Reported Medications Hydroxyzine Pamoate (Vistaril)50 Mg Cap50 Mg PO BID Ref 0 09/30/16 Trazodone 100 Mg [id number] Mg PO HS #30 TAB Ref 0 09/30/16 Hydroxyzine HCl 50 Mg Tab50 Mg PO BID Ref 0 09/30/16 Current Medications Medications (Trade) Dose Ordered Sig/Kenrick Route Start Time Stop Time Status Last Admin (NS Flush) 2 ml UNSCH PRN IV FLUSH 01/12/17 19:00 (NS Flush) 2 ml BID IV FLUSH 01/12/17 21:00 01/12/17 22:48 (Tylenol) 650 mg Q4H PRN PO 01/12/17 19:00 01/13/17 01:46 (Zofran Inj) 4 mg Q6H PRN IVP 01/12/17 19:00 (Heparin Inj) 5,000 units Q12H SQ 01/12/17 20:00 01/12/17 20:19 (Narcan Inj) 0.4 mg UNSCH PRN IV 01/12/17 19:00 (Maryan-Colace) 1 tab BID PO 01/12/17 21:00 01/14/17 08:49 (Milk Of Magnesia Liq) 30 ml Q12H PRN PO 01/12/17 19:00 (Senokot) 17.2 mg Q12H PRN PO 01/12/17 19:00 (Dulcolax Supp) 10 mg DAILY PRN RECTAL 01/12/17 19:00 (Lactulose Liq) 30 ml DAILY PRN PO 01/12/17 19:00 (Habitrol 21 Mg Patch.24 Hr) 1 patch DAILY T-DERMAL 01/13/17 10:45 Miscellaneous Information 1 HS T-DERMAL 01/13/17 21:00 (Zyvox) 600 mg Q12HR PO 01/13/17 21:00 01/14/17 08:49 (Desyrel) 100 mg HS PO 01/13/17 21:30 01/13/17 22:09 Family History She denies family psychiatric history Social History Patient was born and raised in [place], she lives in [place] with her mother, single, no kids, unemployed, highest level of education is high school Patient's Strengths (min. 2) Under observation Physical Exam Not performed due to lack of cooperation Vital Signs Vital Signs Date Time Temp Pulse Resp B/P Pulse Ox O2 Delivery O2 Flow Rate FiO2 01/14/17 08:00 97.8 64 16 109/76 98 01/12/17 19:44 Room Air I/O 01/13/17 01/13/17 01/14/17 08:00 16:00 00:00 Intake Total 380 ml 0 ml 240 ml Balance 380 ml 0 ml 240 ml Lab Results Labs Laboratory Tests Test 01/12/17 01/12/17 15:00 15:10 White Blood Count 4.5 TH/MM3 Red Blood Count 5.24 MIL/MM3 Hemoglobin 15.2 GM/DL Hematocrit 44.4 % Mean Corpuscular Volume 84.8 FL Mean Corpuscular Hemoglobin 29.0 PG Mean Corpuscular Hemoglobin 34.2 % Concent Red Cell Distribution Width 13.2 % Platelet Count 158 TH/MM3 Mean Platelet Volume 9.5 FL Neutrophils (%) (Auto) 63.5 % Lymphocytes (%) (Auto) 25.1 % Monocytes (%) (Auto) 10.5 % Eosinophils (%) (Auto) 0.6 % Basophils (%) (Auto) 0.3 % Neutrophils # (Auto) 2.9 TH/MM3 Lymphocytes # (Auto) 1.1 TH/MM3 Monocytes # (Auto) 0.5 TH/MM3 Eosinophils # (Auto) 0.0 TH/MM3 Basophils # (Auto) 0.0 TH/MM3 CBC Comment DIFF FINAL Differential Comment Sodium Level 140 MEQ/L Potassium Level 4.1 MEQ/L Chloride Level 107 MEQ/L Carbon Dioxide Level 27.2 MEQ/L Anion Gap 6 MEQ/L Blood Urea Nitrogen 7 MG/DL Creatinine 0.62 MG/DL Estimat Glomerular Filtration 118 ML/MIN Rate Random Glucose 96 MG/DL Calcium Level 9.1 MG/DL Total Bilirubin 0.4 MG/DL Aspartate Amino Transf 48 U/L (AST/SGOT) Alanine Aminotransferase 74 U/L (ALT/SGPT) Alkaline Phosphatase 69 U/L Total Protein 7.4 GM/DL Albumin 3.5 GM/DL Urine Opiates Screen POS Urine Barbiturates Screen NEG Urine Amphetamines Screen NEG Urine Benzodiazepines Screen NEG Urine Cocaine Screen POS Urine Cannabinoids Screen NEG Ethyl Alcohol Level LESS THAN 3 MG/DL Lactic Acid Level 1.1 mmol/L Mental Status Examination Appearance young woman, poorly cooperative, covered with a blanket. Speech: Hesitant Orientation: x3 Memory: Unremarkable Thought Process: Goal Directed Thought Content: Unremarkable Hallucination Type: None Attention and Concentration: Good Suicidal Ideation: No Homicidal Ideation: No Insight: Poor Affect: Irritable Mood: Angry Motor Activity: Normal gait Assessment & Plan Problem List: (1) Opiate dependence, continuous Assessment & Plan: At the moment of this evaluation the patient does not present any significant, concerning or acute objective or subjective symptomatology of depression, anxiety, janki or psychosis. Patient denies suicidal and homicidal ideation, she denies visual and auditory hallucinations. Patient is Mikael [facility] acted and committed for drug treatment. Patient was educated about following this recommendations. She does not meet criteria for psychiatric hospitalization at this moment. Patient is psychiatrically stable to be discharged to a rehabilitation program. Psychiatry is signing off. ICD Code: F11.20 Assessment & Plan Estimated LOS: Nicholas Bautista MD Jan 14, 2017 11:43
[2017-01-14 13:12] VITALS: TEMP 96.6
[2017-01-14] MEDS ORDERED: ZYVO600T PO (14:19)
--- NOTE | 2017-01-14 15:07 | HHI.DS ---
Discharge Summary Admission Date January 12, 2017 at 18:53 Discharge Date: Jan 14, 2017 Admitting Diagnosis right arm abscess, cellulitis (1) Cellulitis of right upper extremity ICD Code: L03.113 Diagnosis: Principal (2) Abscess of right upper extremity ICD Code: L02.413 Diagnosis: Secondary (3) IV drug abuse ICD Code: F19.10 Diagnosis: Secondary (4) Nicotine dependence ICD Code: F17.200 Diagnosis: Secondary Procedures None Brief History - From Admission Ms. Goodwin is 26 yo with history of IV drug use. She denied other medical history. Ms. Goodwin was court ordered for evaluation to [facility]. Per medical records she has a 10 year history of drug abuse. She reportedly was in rehab treatment from July 2016 until October 2016. Per medical record she became depressed after recent relapse. Per records pt recently has resumed use and had identified injecting Dilaudid and crack cocaine. Medical records indicated pt developed right arm pain two days before coming to [facility] ED. Patient was encountered in her hospital room. She was awakened and said she did not have pain and declined to participate in the interview and exam process. She stated "I haven;t slept all night, can you come back later" and got up and went into the bathroom. She came back a few moments later and again asked to be seen later. When told this could not happen she laid on her left side, and minimally answered questions and allowed limited examination. She denied other health issues and denied needing to take medication for other issues. As such, a complete history and 10 pt ROS could not be obtained. CBC/BMP: 01/12/17 1500 01/12/17 1500 Significant Findings Laboratory Tests Test 01/12/17 15:00 Monocytes (%) (Auto) 10.5 % (0.0-8.0) Aspartate Amino Transf 48 U/L (15-37) (AST/SGOT) Alanine Aminotransferase 74 U/L (10-53) (ALT/SGPT) Urine Opiates Screen POS (NEG) Urine Cocaine Screen POS (NEG) Imaging Last Impressions Upper Extremity Ultrasound 01/12/17 0000 Signed Impressions: Service Date/Time: Thursday, January 12, 2017 19:45 - CONCLUSION: Edema without abscess. Enrico Brtio Jr., MD Upper Extremity CT 01/12/17 0000 Signed Impressions: Service Date/Time: Thursday, January 12, 2017 16:32 - CONCLUSION: 2.0 cm peripherally enhancing fluid collection the biceps myotendinous junction likely represent abscess with severe adjacent anterior superficial soft tissue edema. Khanh Palma MD PE at Discharge Not in distress, well-nourished, looks stated age Normal rate and regular rhythm, no murmurs gallops or rubs appreciated. Clear to auscultation and symmetric bilaterally, normal respiratory effort. Normal bowel sounds, soft, non-tender, nondistended, no guarding. Extremities without clubbing, cyanosis, or edema. Right elbow, mild tenderness on palpation flexor side, range of motion is normal, no erythema, no fluctuance. No rash of generalized distribution. Skin is warm and dry. AAO x3, no cranial nerve deficits, moves all 4 extremities, no focal neurologic deficits Normal mood, appropriate affect Pt update on day of discharge Afebrile, pain is controlled, no nausea or vomiting. No diarrhea from antibiotics. Hospital Course Ms. Goodwin is 26 yo with history of IV drug use. She denied other medical history. Patient was admitted for cellulitis with abscess of the right upper extremity. CT scan of the upper extremity showed a 2 cm abscess or fluid collection near the biceps myotendinous junction. Patient was empirically started on daptomycin. Orthopedics was consulted, no surgical management was recommended. Infectious disease was consulted, recommendation is to switch to Zyvox orally for 14 days, if not available, may be on Bactrim. Discussed with case management, will try to provide Zyvox otherwise patient will be discharged on Bactrim. Patient will be discharge, she will be going to [facility] after ex parte. Patient cleared by psychiatry for discharge. She will also need to follow-up with Dr. Myers in 2 weeks. Pt Condition on Discharge: Good Discharge Disposition: Trnsfr to Other Facility Discharge Time: > 30 minutes Discharge Instructions DIET: Follow Instructions for: As Tolerated, No Restrictions Activities you can perform: Regular-No Restrictions Follow up Referrals: Orthopedics - 2 Weeks New Medications: Linezolid (Zyvox) 600 Mg Tab 600 MG PO Q12HR abscess #28 TAB Continued Medications: Hydroxyzine HCl (Hydroxyzine HCl) 50 Mg Tab 50 MG PO BID Ref 0 TAB Hydroxyzine Pamoate (Vistaril) 50 Mg Cap 50 MG PO BID Ref 0 CAP Trazodone (Trazodone) 100 Mg Tab 100 MG PO HS Control Depression #30 Ref 0 TAB Natalio Leblanc MD Jan 14, 2017 15:07
--- NOTE | 2017-01-14 16:02 | HHI.PR ---
Addendum to Inpatient Note Addendum Reason: Additional Documentation Additional Information d/w : ok to dc from ID standpoint on Zyvox oral (covers Strep and MRSA) likely organisms in this setting. Clinically responding as well per discussions. Needs follow up with ortho as outpatient May need extension of the antibiotic course, labs and imaging and follow up. Will sign off please call back if any change in clinical condition or questions. Brianna Haddad MD Jan 14, 2017 16:02
[2017-01-14 20:00] VITALS: BP 149/84; PULSE 94; RESP 20; TEMP 97.4; O2SAT 100
[2017-01-14] MEDS: traZODone HCL 100 MG TAB PO SCH (23:14)
[2017-01-15] VITALS: BP 124/69; PULSE 81; RESP 18; TEMP 97.5; O2SAT 98
[2017-01-15] MEDS: ACETAMINOPHEN 325 MG TAB PO PRN (02:21)
[2017-01-15] MEDS: HEPARIN SODIUM - SQ 10,000 UNITS/ML VIAL SQ SCH (08:00)
[2017-01-15] MEDS: LINEZOLID 600 MG TAB PO SCH (08:16)
[2017-01-15] MEDS: DOCUSATE SODIUM 50 MG/SENNA 8.6 MG TAB PO SCH (08:22)
[2017-01-15] MEDS: SODIUM CHLORIDE 0.9% FLUSH 10 ML FLUSH IV FLUSH SCH (08:22)
[2017-01-15] MEDS: NICOTINE 21 MG/24 HR PATCH T-DERMAL SCH (08:23)
== END 2017-01-15 08:41 ==
LOC: NEPD 13:51 → NEDA 18:53 → INTOOBSV 18:53 → N07A 21:39
PROVIDERS: ADMIT Hospitalist; ATTEND Hospitalist
DX: L03.113 Cellulitis of right upper limb (principal); L02.413 Cutaneous abscess of right upper limb; M79.631 Pain in right forearm; R23.4 Changes in skin texture; F19.10 Other psychoactive substance abuse, uncomplicated; F17.210 Nicotine dependence, cigarettes, uncomplicated; F14.90 Cocaine use, unspecified, uncomplicated; F11.10 Opioid abuse, uncomplicated; Z86.14 Personal history of Methicillin resistant Staphylococcus aureus infection
CPT/HCPCS: 73201; 76882; 80053; 80307; 83605; 84703; 85025; 87040; 96374; 96375; 99285; G0378; J0878; J1644; J1885; J2405; J2543; J7030; Q9967

== ENCOUNTER 2017-02-08 06:49 | Emergency (ER) | payer OTHER ==
[~2017-02-08] VITALS: Ht 172.7 cm; Wt 65.0 kg
[~2017-02-08 06:49] MED LIST changes: +ZYVO600T PO
[2017-02-08 06:53] VITALS: BP 117/69; PULSE 106; RESP 16; TEMP 98; O2SAT 100
[2017-02-08] MEDS ORDERED: SODIUM CHLORIDE 0.9% FLUSH 10 ML FLUSH IVF PRN (07:15)
--- NOTE | 2017-02-08 07:40 | PD ---
HPI Chief Complaint: OD/ Ingestion Time Seen by Provider: 07:10 Travel History International Travel<30 days: No Contact w/Intl Traveler<30days: No Traveled to known affect area: No History of Present Illness HPI 26-year-old female presents after she injected heroin and did crack cocaine which is typical for her and felt how she usually feels after this but then she took a pill in her purse which she believes to be Seroquel and just felt abnormal afterwards. She cannot describe to me other than feeling off. She denies pain, fever or other complaints but is a very poor historian on initial examination. PFSH Past Medical History Hx Anticoagulant Therapy: No ADHD: Yes Arthritis: No Asthma: No Blood Disorders: No Bipolar Disorder: Yes Anxiety: Yes Depression: Yes Heart Rhythm Problems: No Cancer: No Cardiovascular Problems: No High Cholesterol: No Chemotherapy: No Chest Pain: No Congestive Heart Failure: No COPD: No Cerebrovascular Accident: No Diabetes: No Diminished Hearing: No Endocrine: No Gastrointestinal Disorders: Yes GERD: No Genitourinary: No Hepatitis: Yes (C) Hiatal Hernia: No Heparin Induced Thrombocytopen: No Hypertension: No Immune Disorder: No Implanted Vascular Access Dvce: No Kidney Stones: No Musculoskeletal: No Neurologic: No Psychiatric: No Reproductive: No Respiratory: No Immunizations Current: No Migraines: No Radiation Therapy: No Renal Failure: No Seizures: No Sleep Apnea: No Thyroid Disease: No Ulcer: No PNEUMOCCOCAL Vaccine (Year): 2008 ?: Not Menopausal: No : 2 Para: 1 Miscarriage: 0 : 1 Past Surgical History Abdominal Surgery: No Appendectomy: No Cardiac Surgery: No Cholecystectomy: No Ear Surgery: No Endocrine Surgery: No Eye Surgery: No Genitourinary Surgery: No Gynecologic Surgery: No Neurologic Surgery: No Oral Surgery: No Thoracic Surgery: No Other Surgery: No Social History Alcohol Use: No Tobacco Use: Yes (1 PPD) Substance Use: Yes (YESTERDAY HEROINE) Allergies-Medications (Allergen,Severity, Reaction): Coded Allergies: Vancomycin (Unverified Allergy, Severe, Itching, 02/08/17) *MDRO Multi-Drug Resistant Organism (Unverified Adverse Reaction, Severe, 02/08/17) MRSA Reported Meds & Prescriptions Reported Meds & Active Scripts Active Zyvox (Linezolid) 600 Mg Tab 600 Mg PO Q12HR Reported Vistaril (Hydroxyzine Pamoate) 50 Mg Cap 50 Mg PO BID Trazodone (Trazodone HCl) 100 Mg Tab 100 Mg PO HS Hydroxyzine HCl 50 Mg Tab 50 Mg PO BID Review of Systems ROS Limitations: Poor Historian Except as stated in HPI: all other systems reviewed are Neg Physical Exam Narrative GENERAL: Well-nourished, well-developed patient. SKIN: Warm and dry. HEAD: Normocephalic and atraumatic. EYES: No injection or drainage. Pupils pinpoint bilaterally ENT: No nasal drainage noted. NECK: Supple, trachea midline. CARDIOVASCULAR: Regular rate and rhythm RESPIRATORY: No increased effort. No accessory muscle use. GASTROINTESTINAL: Abdomen soft, non-tender, nondistended. EXTREMITIES: No edema. No significant abscess noted NEUROLOGICAL: Awake. Motor and sensory grossly within normal limits. Normal speech. Data Data Last Documented VS Vital Signs Date Time Temp Pulse Resp B/P Pulse Ox O2 Delivery O2 Flow Rate FiO2 02/08/17 06:53 98.0 106 16 117/69 100 Orders Electrocardiogram (02/08/17 07:10) Sodium Chloride 0.9% Flush (Ns Flush) (02/08/17 07:15) Drug Screen, Random Urine (02/08/17 07:10) MDM Medical Decision Making Medical Screen Exam Complete: Yes Emergency Medical Condition: Yes Medical Record Reviewed: Yes (past history confirm, recent hospitalization for abscess, patient states she took her antibiotics) Differential Diagnosis Hypoglycemia, drug use, electrolyte abnormality, Narrative Course Will check blood work, urine and monitor 808 patient states weird feeling is gone and she wants to go, patient with poor access and vascular team was at bedside to attempt and she states she doesn't want to have this or any more testing. Nurse at bedside. AMA: The risks of leaving against medical advice without further evaluation treatment were discussed with the patient. These risks include cardiac dysfunction, cardiac dysrhythmia, possible heart attack, possible stroke or . The patient indicated understanding of these risks and appeared to have the capacity to make this decision. Steady gait, clear speech, alert and oriented 4, states given all symptoms have resolved she doesn't want to stay and understands I cannot tell her what happened given we didn't complete testing. Diagnosis Primary Impression: IV drug user Patient Instructions: General Instructions Disposition: AGAINST MEDICAL ADVICE Condition: Stable Hird,Eunice May MD Feb 08, 2017 07:40
[2017-02-08 08:55] LABS: AMPHETAMINE, URINE NEG (NEG); BARBITURATES, URINE NEG (NEG); COCAINE, URINE POS (NEG)
== END 2017-02-08 08:15 | disposition left against medical advice (07) ==
LOC: NEPC 06:49
DX: F11.20 Opioid dependence, uncomplicated (principal); F14.20 Cocaine dependence, uncomplicated; Z53.20 Procedure and treatment not carried out because of patient's decision for unspecified reasons
CPT/HCPCS: 80307

== ENCOUNTER 2017-05-30 21:03 | Emergency (ER) | payer OTHER ==
[~2017-05-30] VITALS: Ht 160 cm; Wt 61.0 kg
[2017-05-30 21:19] VITALS: BP 123/77; PULSE 91; RESP 16; TEMP 98.4; O2SAT 100
[2017-05-30] MEDS ORDERED: BUPR8SUB SL (21:33)
[2017-05-30] MEDS ORDERED: TRAZ100T6 PO (21:33)
[2017-05-30] MEDS ORDERED: VIST50CA PO (21:33)
--- NOTE | 2017-05-30 21:50 | PD ---
HPI Chief Complaint: Skin Problem Time Seen by Provider: 21:43 Travel History International Travel<30 days: No Contact w/Intl Traveler<30days: No Traveled to known affect area: No History of Present Illness HPI 27-year-old female presents to the emergency department for an abscess on her left anterior forearm. She states that this abscess has been present for about 3 months, used leftover oral antibiotics for a week, but the lesion is still present and opened up yesterday expressing fluid. States that she has not used IV drugs in 19 days. Denies fever, chills, chest pain, back pain, flank pain, leg pain. PFSH Past Medical History Hx Anticoagulant Therapy: No ADHD: Yes Arthritis: No Asthma: No Blood Disorders: No Bipolar Disorder: Yes Anxiety: Yes Depression: Yes Heart Rhythm Problems: No Cancer: No Cardiovascular Problems: No High Cholesterol: No Chemotherapy: No Chest Pain: No Congestive Heart Failure: No COPD: No Cerebrovascular Accident: No Diabetes: No Diminished Hearing: No Endocrine: No Gastrointestinal Disorders: Yes GERD: No Genitourinary: No Hepatitis: Yes (C) Hiatal Hernia: No Heparin Induced Thrombocytopen: No Hypertension: No Immune Disorder: No Implanted Vascular Access Dvce: No Kidney Stones: No Musculoskeletal: No Neurologic: No Psychiatric: No Reproductive: No Respiratory: No Immunizations Current: No Migraines: No Radiation Therapy: No Renal Failure: No Seizures: No Sleep Apnea: No Thyroid Disease: No Ulcer: No PNEUMOCCOCAL Vaccine (Year): 2008 ?: Not Menopausal: No : 2 Para: 1 Miscarriage: 0 : 1 Past Surgical History Abdominal Surgery: No Appendectomy: No Cardiac Surgery: No Cholecystectomy: No Ear Surgery: No Endocrine Surgery: No Eye Surgery: No Genitourinary Surgery: No Gynecologic Surgery: No Neurologic Surgery: No Oral Surgery: No Thoracic Surgery: No Other Surgery: No Social History Alcohol Use: No Tobacco Use: Yes (1 PPD) Substance Use: Yes (CLEAN 19 DAYS) Allergies-Medications (Allergen,Severity, Reaction): Coded Allergies: vancomycin (Unverified Allergy, Severe, Itching, 05/30/17) *MDRO Multi-Drug Resistant Organism (Unverified Adverse Reaction, Severe, 05/30/17) MRSA Reported Meds & Prescriptions Reported Meds & Active Scripts Active Clindamycin (Clindamycin HCl) 300 Mg Cap 300 Mg PO TID Reported Vistaril (Hydroxyzine Pamoate) 50 Mg Cap 50 Mg PO DAILY Trazodone (Trazodone HCl) 100 Mg Tablet 100 Mg PO HS Buprenorphine (Buprenorphine HCl) 8 Mg Subl 8 Mg SL DAILY Physical Exam Narrative GENERAL: Well-developed well-nourished SKIN: Focused skin assessment warm/dry.Left anterior forearm 1 cm distal to the crux of the elbow with a fluctuant and loculated abscess. No lymphangial Spread , exudative fluid is expressed with mild palpation. HEAD: Atraumatic. Normocephalic. EYES: Pupils equal and round. No scleral icterus. No injection or drainage. ENT: No nasal bleeding or discharge. Mucous membranes pink and moist. NECK: Trachea midline. No JVD. CARDIOVASCULAR: Regular rate and rhythm. No murmur appreciated. RESPIRATORY: No accessory muscle use. Clear to auscultation. Breath sounds equal bilaterally. GASTROINTESTINAL: Abdomen soft, non-tender, nondistended. Hepatic and splenic margins not palpable. MUSCULOSKELETAL: No obvious deformities. No clubbing. No cyanosis. No edema. NEUROLOGICAL: Awake and alert. No obvious cranial nerve deficits. Motor grossly within normal limits. Normal speech. PSYCHIATRIC: Appropriate mood and affect; insight and judgment normal. Data Data Last Documented VS Vital Signs Date Time Temp Pulse Resp B/P (MAP) Pulse Ox O2 Delivery O2 Flow Rate FiO2 05/30/17 21:19 98.4 91 16 123/77 (92) 100 MDM Medical Decision Making Medical Screen Exam Complete: Yes Emergency Medical Condition: Yes Differential Diagnosis Left forearm abscess versus cellulitis versus erysipelas. Narrative Course 27-year-old female presents to the emergency department with a 3 month history of an abscess on her anterior left forearm. States she took leftover antibiotics for one week without resolution. He does have a history of IV drug use and states she has been sober for 19 days. Denies fever, chills or any systemic complaints. Left forearm demonstrates 1-1/2 cm area of fluctuance with loculations. No erythema, mildly tender to palpation, exudate expressed with mild palpation. Incision and drainage performed. No culture obtained due to scant exudate expressed. Antibiotics as prescribed. She is to return to primary care physician for further treatment and follow-up Advised when she should return to the emergency department Procedures Procedure Narrative INCISION AND DRAINAGE OF ABSCESS: The area was prepped and was sterilely draped. A subcutaneous wheal of 1% Xylocaine - with a total number to 1 mL was used to anesthetize the area properly. A number 11 scalpel was used to make a 3 mm incision across the area of the abscess. The abscess was drained, complex loculations were broken down, and irrigated with normal saline. Cultures were obtained. Quarter inch iodoform packing was placed in the wound. Sterile dressing applied. Patient advised to have packing removed in two days. Diagnosis Primary Impression: Abscess of left forearm Referrals: Primary Care Physician Additional Instructions: Take all medications as prescribed You may change dressings tomorrow or the next day. Keep area clean and dry Return to primary care physician for further treatment and evaluation If you develop increased redness swelling or pus return to the emergency department Scripts Clindamycin (Clindamycin) 300 Mg Cap 300 MG PO TID for Infection, #21 CAP 0 Refills Prov: Jacobo Montez MD 05/30/17 Disposition: 01 DISCHARGE HOME Condition: Stable Marielle Alvarez May 30, 2017 21:50
[2017-05-30] MEDS ORDERED: CLIN1CAP6 PO (21:51)
[2017-05-30] MEDS ORDERED: CLINDAMYCIN 150 MG CAP PO ONE (22:45)
== END 2017-05-30 23:19 | disposition home or self-care (01) ==
LOC: PHEFT 21:03
DX: L02.414 Cutaneous abscess of left upper limb (principal)
CPT/HCPCS: 10061

== ENCOUNTER 2017-07-11 03:34 | Emergency (ER) | payer OTHER ==
[~2017-07-11] VITALS: Ht 160 cm; Wt 61.0 kg
[~2017-07-11 03:34] MED LIST changes: +BUPR8SUB SL; +CLIN300C5 PO; -HYDR50TA94 PO; +TRAZ100T10 PO; -TRAZ100T4 PO; -ZYVO600T PO
[2017-07-11 03:39] VITALS: BP 157/97; PULSE 111; RESP 16; TEMP 99.1; O2SAT 100
[2017-07-11] MEDS ORDERED: SODIUM CHLOR 0.9% 1000 ML INJ 1,000 ML IV ONE (04:15)
[2017-07-11] MEDS ORDERED: LORazepam 2 MG/ML VIAL IV PUSH ONE (04:15)
[2017-07-11 04:52] LABS: AUTOMATED NEUTROPHIL # 5.2 TH/MM3 (1.8-7.7); BASOPHIL % 0.6 % (0.0-2.0); EOSINOPHIL # 0.1 TH/MM3 (0-0.4); EOSINOPHIL % 0.8 % (0.0-4.0); HEMATOCRIT 40.3 % (35.0-46.0); HEMO FLAGS DIFF FINAL; LYMPH % 28.2 % (9.0-44.0); LYMPHOCYTE # 2.4 TH/MM3 (1.0-4.8); MEAN CELL VOLUME 81.4 FL (80.0-100.0); MEAN CORPUSCULAR HEMOGLOBIN 28.6 PG (27.0-34.0); MEAN CORPUSCULAR HGB CONC 35.2 % (32.0-36.0); NEUT % 61.4 % (16.0-70.0); PLATELET COUNT 173 TH/MM3 (150-450); RED BLOOD COUNT 4.96 MIL/MM3 (4.00-5.30); WHITE BLOOD COUNT 8.4 TH/MM3 (4.0-11.0)
--- NOTE | 2017-07-11 04:58 | RADRPT ---
EXAM DATE/TIME: 07/11/2017 04:17 [place] COMPARISON: No previous studies available for comparison. INDICATIONS : Short of breath. MEDICAL HISTORY : None. SURGICAL HISTORY : None. ENCOUNTER: Initial ACUITY: 1 day PAIN SCORE: 0/10 LOCATION: Bilateral chest FINDINGS: PA and lateral views of the chest demonstrate the lungs to be symmetrically aerated without evidence of mass, infiltrate or effusion. The cardiomediastinal contours are unremarkable. Osseous structure s are intact. CONCLUSION: No acute disease. Chon Sanchez MD on July 11, 2017 at 4:55 Board Certified Radiologist. This report was verified electronically.
[2017-07-11 05:12] LABS: ALT (GPT) 90 U/L (10-53); ANION GAP 10 MEQ/L (5-15); AST (GOT) 42 U/L (15-37); BICARBONATE 24.2 MEQ/L (21.0-32.0); BLOOD UREA NITROGEN 8 MG/DL (7-18); CHLORIDE 98 MEQ/L (98-107); GLOMERULAR FILTRATION RATE 127 ML/MIN (>89); POTASSIUM 3.1 MEQ/L (3.5-5.1); SODIUM (NA) 132 MEQ/L (136-145)
[2017-07-11 05:15] LABS: ALKALINE PHOSPHATASE 83 U/L (45-117); CREATINE KINASE 136 U/L (26-192); TOTAL BILIRUBIN ADULT 0.9 MG/DL (0.2-1.0)
[2017-07-11] MEDS ORDERED: POTASSIUM CHLORIDE 10 MEQ CONTROLLED RELEASE TAB PO ONE (06:15)
--- NOTE | 2017-07-11 06:26 | PD ---
HPI Chief Complaint: Alcohol/Drug Intoxication Time Seen by Provider: 03:52 Travel History International Travel<30 days: No Contact w/Intl Traveler<30days: No Traveled to known affect area: No History of Present Illness HPI Patient is a 27 year old female who comes in complaining of feeling as if she would pass out. She says she was using Heroine and meth and she feels her heart racing. She says this has not happened before when she has used meth. She says she has chest pain and SOB. She denies fever or chills. she denies abdominal pain, nausea or vomiting. PFSH Past Medical History Hx Anticoagulant Therapy: No ADHD: Yes Arthritis: No Asthma: No Blood Disorders: No Bipolar Disorder: Yes Anxiety: Yes Depression: Yes Heart Rhythm Problems: No Cancer: No Cardiovascular Problems: No High Cholesterol: No Chemotherapy: No Chest Pain: No Congestive Heart Failure: No COPD: No Cerebrovascular Accident: No Diabetes: No Diminished Hearing: No Endocrine: No Gastrointestinal Disorders: Yes GERD: No Genitourinary: No Hepatitis: Yes (C) Hiatal Hernia: No Heparin Induced Thrombocytopen: No Hypertension: No Immune Disorder: No Implanted Vascular Access Dvce: No Kidney Stones: No Musculoskeletal: No Neurologic: No Psychiatric: No Reproductive: No Respiratory: No Immunizations Current: Yes Migraines: No Radiation Therapy: No Renal Failure: No Seizures: No Sleep Apnea: No Thyroid Disease: No Ulcer: No Tetanus Vaccination: < 5 Years Influenza Vaccination: No PNEUMOCCOCAL Vaccine (Year): 2008 ?: Unknown Menopausal: No : 2 Para: 1 Miscarriage: 0 : 1 Past Surgical History Abdominal Surgery: No Appendectomy: No Cardiac Surgery: No Cholecystectomy: No Ear Surgery: No Endocrine Surgery: No Eye Surgery: No Genitourinary Surgery: No Gynecologic Surgery: No Neurologic Surgery: No Oral Surgery: No Thoracic Surgery: No Other Surgery: No Social History Alcohol Use: No Tobacco Use: Yes (1 PPD) Substance Use: Yes (meth and heroin ) Allergies-Medications (Allergen,Severity, Reaction): Coded Allergies: vancomycin (Unverified Allergy, Severe, Itching, 07/11/17) *MDRO Multi-Drug Resistant Organism (Unverified Adverse Reaction, Severe, 07/11/17) MRSA Reported Meds & Prescriptions Reported Meds & Active Scripts Active Clindamycin (Clindamycin HCl) 300 Mg Cap 300 Mg PO TID Reported Vistaril (Hydroxyzine Pamoate) 50 Mg Cap 50 Mg PO DAILY Trazodone (Trazodone HCl) 100 Mg Tablet 100 Mg PO HS Buprenorphine (Buprenorphine HCl) 8 Mg Subl 8 Mg SL DAILY Review of Systems Except as stated in HPI: all other systems reviewed are Neg General / Constitutional: No: Fever, Chills Eyes: No: Blurred Vision HENT: Positive: Lightheadedness, No: Headaches Cardiovascular: Positive: Chest Pain or Discomfort, Palpitations Respiratory: Positive: Shortness of Breath Gastrointestinal: No: Nausea, Vomiting Musculoskeletal: No: Myalgias, Edema, Pain Skin: No Change in Pigmentation Neurologic: Positive: Dizziness, No: Weakness, Syncope Physical Exam Narrative GENERAL: Awake and alert, in no acute distress. SKIN: Focused skin assessment warm/dry. Tract meza in both arms. Markings returning get on the left bicep. HEAD: Atraumatic. Normocephalic. EYES: Pupils equal and round. No scleral icterus. Extraocular movements intact. ENT: Mucous membranes pink and moist. NECK: Trachea midline. No JVD. CARDIOVASCULAR: Tachycardia. No murmur appreciated. RESPIRATORY: No accessory muscle use. Clear to auscultation. Breath sounds equal bilaterally. GASTROINTESTINAL: Abdomen soft, non-tender, nondistended. MUSCULOSKELETAL: No obvious deformities. No clubbing. No cyanosis. No edema. NEUROLOGICAL: Awake and alert. No obvious cranial nerve deficits. Motor grossly within normal limits. Normal speech. PSYCHIATRIC: Appropriate mood and affect; insight and judgment normal. Data Data Last Documented VS Vital Signs Date Time Temp Pulse Resp B/P (MAP) Pulse Ox O2 Delivery O2 Flow Rate FiO2 07/11/17 03:39 99.1 111 16 157/97 (117) 100 Room Air Orders Orders Iv Access Insert/Monitor (07/11/17 04:05) Complete Blood Count With Diff (07/11/17 04:05) Comprehensive Metabolic Panel (07/11/17 04:05) Creatine Kinase (Cpk) (07/11/17 04:05) Troponin I (07/11/17 04:05) Electrocardiogram (07/11/17 ) Chest, Pa & Lat (07/11/17 ) Ed Urine Pregnancytest Poc (07/11/17 04:05) Sodium Chlor 0.9% 1000 Ml Inj (Ns 1000 M (07/11/17 04:15) Lorazepam Inj (Ativan Inj) (07/11/17 04:15) Potassium Chloride (Kcl) (07/11/17 06:15) Labs Laboratory Tests Test 07/11/17 04:47 White Blood Count 8.4 TH/MM3 Red Blood Count 4.96 MIL/MM3 Hemoglobin 14.2 GM/DL Hematocrit 40.3 % Mean Corpuscular Volume 81.4 FL Mean Corpuscular Hemoglobin 28.6 PG Mean Corpuscular Hemoglobin Concent 35.2 % Red Cell Distribution Width 15.0 % Platelet Count 173 TH/MM3 Mean Platelet Volume 8.2 FL Neutrophils (%) (Auto) 61.4 % Lymphocytes (%) (Auto) 28.2 % Monocytes (%) (Auto) 9.0 % Eosinophils (%) (Auto) 0.8 % Basophils (%) (Auto) 0.6 % Neutrophils # (Auto) 5.2 TH/MM3 Lymphocytes # (Auto) 2.4 TH/MM3 Monocytes # (Auto) 0.8 TH/MM3 Eosinophils # (Auto) 0.1 TH/MM3 Basophils # (Auto) 0.0 TH/MM3 CBC Comment DIFF FINAL Differential Comment Blood Urea Nitrogen 8 MG/DL Creatinine 0.58 MG/DL Random Glucose 102 MG/DL Total Protein 7.0 GM/DL Albumin 3.9 GM/DL Calcium Level 8.7 MG/DL Alkaline Phosphatase 83 U/L Aspartate Amino Transf (AST/SGOT) 42 U/L Alanine Aminotransferase (ALT/SGPT) 90 U/L Total Bilirubin 0.9 MG/DL Sodium Level 132 MEQ/L Potassium Level 3.1 MEQ/L Chloride Level 98 MEQ/L Carbon Dioxide Level 24.2 MEQ/L Anion Gap 10 MEQ/L Estimat Glomerular Filtration Rate 127 ML/MIN Total Creatine Kinase 136 U/L Troponin I LESS THAN 0.02 NG/ML [facility] Medical Decision Making Medical Screen Exam Complete: Yes Emergency Medical Condition: Yes Medical Record Reviewed: Yes Interpretation(s) ECG shows sinus tachycardia at 108, no ST elevation or depression. Differential Diagnosis Drug abuse versus anxiety versus dehydration Narrative Course Patient is a 27-year-old female who comes in from [facility] because she felt like she was getting out of his out. She says she did use heroin and meth today. Exam shows tachycardia. IV established, labs sent. Labs show a potassium of 3.1 this was replaced. Patient given IV fluids and Ativan. She'll be discharged back to [facility]. Diagnosis Primary Impression: Dizziness Additional Impression: Drug abuse Patient Instructions: Dizziness (ED), General Instructions, Methamphetamine Abuse (ED) Additional Instructions: Avoid drug use. Drink plenty of fluids. Return to the ED as needed for any worsening symptoms. Disposition: 01 DISCHARGE HOME Condition: Stable Sarah Cano MD Jul 11, 2017 06:26
--- NOTE | 2017-07-11 08:24 | EKG ---
Date Performed: 07/11/2017 Time Performed: 05:15:29 PTAGE: 27 years EKG: SINUS TACHYCARDIA POSSIBLE LEFT ATRIAL ENLARGEMENT POSSIBLE RIGHT VENTRICULAR CONDUCTION DE LAY ABNORMAL RHYTHM ECG PREVIOUS TRACING : 04/27/2016 10.51 No significant change from previous tracing noted. DOCTOR: Cyril Null Interpretating Date/Time 07/11/2017 08:23:31
== END 2017-07-11 07:37 | disposition home or self-care (01) ==
LOC: NEPE 03:34
DX: R42 Dizziness and giddiness (principal); F19.10 Other psychoactive substance abuse, uncomplicated; E87.6 Hypokalemia; R07.9 Chest pain, unspecified; R06.02 Shortness of breath; R00.0 Tachycardia, unspecified; R94.31 Abnormal electrocardiogram [ECG] [EKG]; F31.9 Bipolar disorder, unspecified; F41.9 Anxiety disorder, unspecified; F17.200 Nicotine dependence, unspecified, uncomplicated; Z87.19 Personal history of other diseases of the digestive system; Z86.19 Personal history of other infectious and parasitic diseases
CPT/HCPCS: 71020; 80053; 82550; 84484; 84703; 85025; 93005; 96361; 96374; 99285; J2060; J7030

== ENCOUNTER 2017-07-20 19:44 | Emergency (ER) | payer OTHER ==
[2017-07-20 19:54] VITALS: BP 154/87; PULSE 98; RESP 20; TEMP 98.7; O2SAT 99
[2017-07-20 21:35] VITALS: BP 135/93
[2017-07-20] MEDS ORDERED: DOXY100C PO (21:35)
[2017-07-20] MEDS ORDERED: BACT800T5 PO (21:35)
--- NOTE | 2017-07-20 21:37 | PD ---
HPI Chief Complaint: Skin Problem Time Seen by Provider: 21:04 Travel History International Travel<30 days: No Contact w/Intl Traveler<30days: No Traveled to known affect area: No History of Present Illness HPI The patient is a 27-year-old female, active IV drug abuser who injected her right antecubital fossa and apparently missed the vein. She is using crystal meth and heroin. The abscess started 3 days ago and is getting much larger and more painful. She denies any fever. She denies any chest pain. PFSH Past Medical History Hx Anticoagulant Therapy: No ADHD: Yes Arthritis: No Asthma: No Blood Disorders: No Bipolar Disorder: Yes Anxiety: Yes Depression: Yes Heart Rhythm Problems: No Cancer: No Cardiovascular Problems: No High Cholesterol: No Chemotherapy: No Chest Pain: No Congestive Heart Failure: No COPD: No Cerebrovascular Accident: No Diabetes: No Diminished Hearing: No Endocrine: No Gastrointestinal Disorders: Yes GERD: No Genitourinary: No Hepatitis: Yes (C) Hiatal Hernia: No Heparin Induced Thrombocytopen: No Hypertension: No Immune Disorder: No Implanted Vascular Access Dvce: No Kidney Stones: No Musculoskeletal: No Neurologic: No Psychiatric: No Reproductive: No Respiratory: No Immunizations Current: Yes Migraines: No Radiation Therapy: No Renal Failure: No Seizures: No Sleep Apnea: No Thyroid Disease: No Ulcer: No Tetanus Vaccination: < 5 Years Influenza Vaccination: No PNEUMOCCOCAL Vaccine (Year): 2008 ?: Unknown LMP: 1 wk ago Menopausal: No : 2 Para: 1 Miscarriage: 0 : 1 Past Surgical History Surgical History: No Previous Surgery Abdominal Surgery: No Appendectomy: No Cardiac Surgery: No Cholecystectomy: No Ear Surgery: No Endocrine Surgery: No Eye Surgery: No Genitourinary Surgery: No Gynecologic Surgery: No Neurologic Surgery: No Oral Surgery: No Thoracic Surgery: No Other Surgery: No Social History Alcohol Use: No Tobacco Use: Yes (1 PPD) Substance Use: Yes (meth and heroin ) Allergies-Medications (Allergen,Severity, Reaction): Coded Allergies: vancomycin (Unverified Allergy, Severe, Itching, 07/20/17) *MDRO Multi-Drug Resistant Organism (Unverified Adverse Reaction, Severe, 07/20/17) MRSA Reported Meds & Prescriptions Reported Meds & Active Scripts Active Reported Vistaril (Hydroxyzine Pamoate) 50 Mg Cap 50 Mg PO DAILY Trazodone (Trazodone HCl) 100 Mg Tablet 100 Mg PO HS Review of Systems Except as stated in HPI: all other systems reviewed are Neg Physical Exam Narrative GENERAL: Well-nourished, well-developed patient in moderate distress with her right antecubital abscess discomfort. Her vital signs show blood pressure 154/ 87 with heart rate of 98 but otherwise normal. SKIN: Focused skin assessment warm/dry. There are lesions on her face where she is picking at her face because of anxiety. Recent and old needle tracks are present on both arms. There is a 2 cm abscess which is fluctuant on the right antecubital fossa. HEAD: Normocephalic. EYES: No scleral icterus. No injection or drainage. NECK: Supple, trachea midline. No JVD or lymphadenopathy. CARDIOVASCULAR: Regular rate and rhythm without murmurs, gallops, or rubs. RESPIRATORY: Breath sounds equal bilaterally. No accessory muscle use. GASTROINTESTINAL: Abdomen soft, non-tender, nondistended. MUSCULOSKELETAL: No cyanosis, or edema. BACK: Nontender without obvious deformity. No CVA tenderness. Data Data Last Documented VS Vital Signs Date Time Temp Pulse Resp B/P (MAP) Pulse Ox O2 Delivery O2 Flow Rate FiO2 07/20/17 19:54 98.7 98 20 154/87 (109) 99 MDM Medical Decision Making Medical Screen Exam Complete: Yes Emergency Medical Condition: Yes Medical Record Reviewed: Yes Differential Diagnosis Abscess right arm, cellulitis right antecubital fossa, lymphadenitis right antecubital fossa Narrative Course The patient has an abscess of the right antecubital fossa. Very little cellulitis is present and the abscess appears walled off fairly well. Incision and drainage reduced considerable amount of pus and pain relief for this patient. Procedures Procedure Narrative The area was prepped with Betadine. Under sterile technique, field block was done with 1% lidocaine. A #11 blade was used to incise a 1 cm incision. A considerable amount of pus was recovered to this incision. I blunt dissected using a hemostat which opened up more pus pockets. The area was cleaned out with peroxide moistened Q-tips. The patient tolerated all the procedure well except the Q-tip peroxide cleaning and this had to be terminated after 2 Q-tips were used. Nevertheless, the abscess cavity was cleaned out fairly well. Diagnosis Primary Impression: Abscess of right upper extremity Additional Impressions: IV drug abuse Encounter for incision and drainage procedure Additional Instructions: As we discussed, use narcotics anonymous or start to get off these drugs. Use a heating pad on its lowest setting an interposed a towel between your skin and the pad to avoid becker. Both antibiotics are one tablet twice daily for 10 days. Follow-up with a primary care physician next week. Med/Other Pt SpecificInfo: Prescription(s) given Scripts Sulfamethoxazole-Trimethoprim (Bactrim DS) 800-160 Mg Tab 1 TAB PO BID for Infection, #20 TAB 0 Refills Prov: Braulio Harrington MD 07/20/17 Doxycycline Hyclate (Doxycycline Hyclate) 100 Mg Cap 100 MG PO BID for Infection, #20 CAP 0 Refills Prov: Braulio Harrington MD 07/20/17 Disposition: 01 DISCHARGE HOME Condition: Stable Braulio Harrington MD Jul 20, 2017 21:37
[2017-07-20] MEDS ORDERED: SULFAMETHOXAZOLE-TRIMETHOPRIM DS 800-160 MG TAB PO ONE (21:45)
[2017-07-20] MEDS ORDERED: DOXYCYCLINE HYCLATE 100 MG CAP PO ONE (21:45)
== END 2017-07-20 21:48 | disposition home or self-care (01) ==
LOC: PHED 19:44
DX: L02.413 Cutaneous abscess of right upper limb (principal); F19.10 Other psychoactive substance abuse, uncomplicated; B95.62 Methicillin resistant Staphylococcus aureus infection as the cause of diseases classified elsewhere; B19.20 Unspecified viral hepatitis C without hepatic coma
CPT/HCPCS: 10060; 86403; 87070; 87186; 87205

== ENCOUNTER 2017-08-19 20:30 | Emergency (ER) | payer SELFPAY ==
[~2017-08-19] VITALS: Ht 160 cm; Wt 58.8 kg
[~2017-08-19 20:30] MED LIST changes: +BACT800T5 PO; -BUPR8SUB SL; -CLIN300C5 PO; +DOXY100C PO
[2017-08-19 20:35] VITALS: PULSE 112; RESP 18; TEMP 98.7; O2SAT 99
[2017-08-19] MEDS ORDERED: SUBUTEX PO (20:50)
[2017-08-19] MEDS ORDERED: SULFAMETHOXAZOLE-TRIMETHOPRIM DS 800-160 MG TAB PO ONE (21:00)
[2017-08-19] MEDS ORDERED: CLINDAMYCIN PHOS 600 MG/4 ML VIAL IM ONE (21:00)
[2017-08-19] MEDS ORDERED: HIBI4LIQ TOPICAL (21:03)
[2017-08-19] MEDS ORDERED: CLIN150 PO (21:03)
[2017-08-19] MEDS ORDERED: BACT800T5 PO (21:03)
--- NOTE | 2017-08-19 21:03 | PD ---
HPI Chief Complaint: Skin Problem Time Seen by Provider: 20:41 Travel History International Travel<30 days: No Contact w/Intl Traveler<30days: No Traveled to known affect area: No History of Present Illness HPI The patient is a 27-year-old female who presents to the emergency department for multiple abscesses. The patient has a history of IV drug abuse, has been using heroin lately. The patient is also on Subutex. The patient states she is currently on a waiting list for rehabilitation. She does have a history of recurrent abscesses secondary to IV drug use and has been injecting in the lower extremities and upper extremities. She complains of abscesses to the medial aspect lower extremities as well as to the lateral aspect of the proximal forearms bilaterally from injection. She denies any fever, does note intermittent chills. She denies any known history of endocarditis or septic emboli. The patient has been on antibiotics multiple times in the past for her abscesses. She does not have a local primary physician. The patient states the physician at rest or Subutex is located in [place], [place]. PFSH Past Medical History Hx Anticoagulant Therapy: No ADHD: Yes Arthritis: No Asthma: No Blood Disorders: No Bipolar Disorder: Yes Anxiety: Yes Depression: Yes Heart Rhythm Problems: No Cancer: No Cardiovascular Problems: No High Cholesterol: No Chemotherapy: No Chest Pain: No Congestive Heart Failure: No COPD: No Cerebrovascular Accident: No Diabetes: No Diminished Hearing: No Endocrine: No Gastrointestinal Disorders: Yes GERD: No Genitourinary: No Hepatitis: Yes (C) Hiatal Hernia: No Heparin Induced Thrombocytopen: No Hypertension: No Immune Disorder: No Implanted Vascular Access Dvce: No Kidney Stones: No Musculoskeletal: No Neurologic: No Psychiatric: No Reproductive: No Respiratory: No Immunizations Current: Yes Migraines: No Radiation Therapy: No Renal Failure: No Seizures: No Sleep Apnea: No Thyroid Disease: No Ulcer: No Tetanus Vaccination: < 5 Years PNEUMOCCOCAL Vaccine (Year): 2008 ?: Unknown LMP: 3 WEEKS AGO Menopausal: No : 2 Para: 1 Miscarriage: 0 : 1 Past Surgical History Abdominal Surgery: No Appendectomy: No Cardiac Surgery: No Cholecystectomy: No Ear Surgery: No Endocrine Surgery: No Eye Surgery: No Genitourinary Surgery: No Gynecologic Surgery: No Neurologic Surgery: No Oral Surgery: No Thoracic Surgery: No Other Surgery: No Social History Alcohol Use: No Tobacco Use: Yes (1 PPD) Substance Use: Yes (meth and heroin ) Allergies-Medications (Allergen,Severity, Reaction): Coded Allergies: vancomycin (Unverified Allergy, Severe, Itching, 08/19/17) 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, Severe, 08/19/17) MRSA Reported Meds & Prescriptions Reported Meds & Active Scripts Active Bactrim DS (Sulfamethoxazole-Trimethoprim) 800-160 Mg Tab 1 Tab PO BID Doxycycline Hyclate 100 Mg Cap 100 Mg PO BID Reported [Subutex] 8 Mg PO DAILY Vistaril (Hydroxyzine Pamoate) 50 Mg Cap 50 Mg PO DAILY Trazodone (Trazodone HCl) 100 Mg Tablet 100 Mg PO HS Review of Systems Except as stated in HPI: all other systems reviewed are Neg General / Constitutional: Positive: Chills, No: Fever HENT: No: Lightheadedness Cardiovascular: No: Chest Pain or Discomfort Respiratory: No: Shortness of Breath Gastrointestinal: No: Nausea, Vomiting Musculoskeletal: Positive: Edema, Pain Skin: Positive Other (as noted in the history of present illness) Neurologic: No: Paresthesia, Sensory Disturbance Physical Exam Narrative GENERAL: Awake, alert, 27-year-old female appears her stated age and appears somewhat disheveled. SKIN: Focused skin assessment warm/dry. Patient has multiple injection meza noted on the upper and lower extremities. She has a draining abscess the medial aspect left lower extremity with a small blister. She has an area of swollen over the lateral aspect of the right elbow as well as medial aspect of the right lower extremity which is indurated but not fluctuant. She also has an area above the left elbow on the left upper extremity that is erythematous with an old scan but no underlying fluctuance. HEAD: Atraumatic. Normocephalic. EYES: No injection or drainage. ENT: No nasal bleeding or discharge. Mucous membranes pink and moist. NECK: Trachea midline. No JVD. CARDIOVASCULAR: Regular, tachycardic with a heart rate of 105. MUSCULOSKELETAL: No obvious deformities. No clubbing. No cyanosis. No edema. As noted under the skin assessment. NEUROLOGICAL: Awake and alert. No obvious cranial nerve deficits. Motor grossly within normal limits. Normal speech. Nonfocal. PSYCHIATRIC: Appropriate mood and affect; insight and judgment normal. Data Data Last Documented VS Vital Signs Date Time Temp Pulse Resp B/P (MAP) Pulse Ox O2 Delivery O2 Flow Rate FiO2 08/19/17 20:35 98.7 112 18 99 Orders Orders Clindamycin Inj (Cleocin Inj) (08/19/17 21:00) Sulfamet-Trimeth Ds 800-160 Mg (Bactrim (08/19/17 21:00) MDM Medical Decision Making Medical Screen Exam Complete: Yes Emergency Medical Condition: Yes Medical Record Reviewed: Yes Differential Diagnosis Differential diagnosis includes abscess, IV drug use, multiple abscesses, cellulitis, infected wound. Narrative Course I reviewed the patient's EMR, she has had multiple cultures that all grow MRSA. The patient is advised to stop using IV drugs. Warm compresses to the abscess is. She was administered clindamycin 600 mg IM and Bactrim orally. I reviewed the cultures, her last culture was sensitive to clindamycin and Bactrim. She is advised to return if her symptoms worsen or progress. She is advised that continued IV drug use could resultant epidural abscesses, septic emboli, and endocarditis. Diagnosis Primary Impression: Abscess of multiple sites Additional Impression: IV drug abuse Patient Instructions: General Instructions Additional Instructions: Warm compresses to the abscesses. Monitor for signs of progressing infection. Medications as directed. Stop using IV drugs. Med/Other Pt SpecificInfo: Prescription(s) given Scripts Chlorhexidine Gluconate Topical (Hibiclens Topical) 4% Liq 1 APPLIC TOPICAL ONCE for Skin Cleanser, #118 ML 0 Refills Prov: Les Curran MD 08/19/17 Clindamycin (Cleocin) 150 Mg Cap 300 MG PO Q6H for Infection for 10 Days, #80 CAP 0 Refills Prov: Les Curran MD 08/19/17 Sulfamethoxazole-Trimethoprim (Bactrim DS) 800-160 Mg Tab 1 TAB PO BID for Infection, #20 TAB 0 Refills Prov: Les Curran MD 08/19/17 Disposition: 01 DISCHARGE HOME Condition: Stable Les Curran MD Aug 19, 2017 21:03
== END 2017-08-19 21:25 | disposition home or self-care (01) ==
LOC: PHED 20:30
DX: L02.416 Cutaneous abscess of left lower limb (principal); F19.10 Other psychoactive substance abuse, uncomplicated; F90.9 Attention-deficit hyperactivity disorder, unspecified type; F31.9 Bipolar disorder, unspecified; F41.9 Anxiety disorder, unspecified; F17.200 Nicotine dependence, unspecified, uncomplicated; Z79.899 Other long term (current) drug therapy; Z86.19 Personal history of other infectious and parasitic diseases; Z88.5 Allergy status to narcotic agent
CPT/HCPCS: 96372

== ENCOUNTER 2017-08-24 17:44 | Emergency (ER) | payer SELFPAY ==
[~2017-08-24] VITALS: Ht 160 cm; Wt 59.0 kg
[2017-08-24 17:44] VITALS: BP 131/86; PULSE 101; RESP 20; TEMP 98.7; O2SAT 100
[~2017-08-24 17:44] MED LIST changes: +CLIN150 PO; +HIBI4LIQ TOPICAL; +SUBUTEX PO
--- NOTE | 2017-08-31 12:25 | PD ---
HPI Chief Complaint: Skin Problem Time Seen by Provider: 17:52 Travel History International Travel<30 days: No Contact w/Intl Traveler<30days: No Traveled to known affect area: No History of Present Illness HPI Pt is a 27-year-old female presented to the emergency department for evaluation of multiple abscesses. She has one on her left forearm, left leg, right ankle. Patient states that she is currently on antibiotics that were prescribed to her last week when she went to [facility]. Patient endorses IV drug use, she states she uses heroin. She denies any fevers. Symptom onset was gradual, there are no alleviating factors. She states the pain is worse and her foot is more swollen. She reports spontaneous drainage. Pain is aching, throbbing and sore. She rates the pain 10 out of 10. PFSH Past Medical History Hx Anticoagulant Therapy: No ADHD: Yes Arthritis: No Asthma: No Blood Disorders: No Bipolar Disorder: Yes Anxiety: Yes Depression: Yes Heart Rhythm Problems: No Cancer: No Cardiovascular Problems: No High Cholesterol: No Chemotherapy: No Chest Pain: No Congestive Heart Failure: No COPD: No Cerebrovascular Accident: No Diabetes: No Diminished Hearing: No Endocrine: No Gastrointestinal Disorders: Yes GERD: No Genitourinary: No Hepatitis: Yes (C) Hiatal Hernia: No Heparin Induced Thrombocytopen: No Hypertension: No Immune Disorder: No Implanted Vascular Access Dvce: No Kidney Stones: No Musculoskeletal: No Neurologic: No Psychiatric: No Reproductive: No Respiratory: No Immunizations Current: Yes Migraines: No Radiation Therapy: No Renal Failure: No Seizures: No Sleep Apnea: No Thyroid Disease: No Ulcer: No PNEUMOCCOCAL Vaccine (Year): 2008 ?: Not LMP: 3 weeks ago Menopausal: No : 2 Para: 1 Miscarriage: 0 : 1 Past Surgical History Abdominal Surgery: No Appendectomy: No Cardiac Surgery: No Cholecystectomy: No Ear Surgery: No Endocrine Surgery: No Eye Surgery: No Genitourinary Surgery: No Gynecologic Surgery: No Neurologic Surgery: No Oral Surgery: No Thoracic Surgery: No Other Surgery: No Social History Alcohol Use: No Tobacco Use: Yes (1 PPD) Substance Use: Yes (meth and heroin ) Allergies-Medications (Allergen,Severity, Reaction): Coded Allergies: vancomycin (Unverified Allergy, Severe, Itching, 08/31/17) 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, Severe, 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 Reported Meds & Prescriptions Reported Meds & Active Scripts Active Clindamycin (Clindamycin HCl) 300 Mg Cap 300 Mg PO Q6H 7 Days Bactrim DS (Sulfamethoxazole-Trimethoprim) 800-160 Mg Tab 1 Tab PO BID Hibiclens Topical (Chlorhexidine Gluconate) 4% Liq 1 Applic TOPICAL ONCE Cleocin (Clindamycin HCl) 150 Mg Cap 300 Mg PO Q6H 10 Days Bactrim DS (Sulfamethoxazole-Trimethoprim) 800-160 Mg Tab 1 Tab PO BID Bactrim DS (Sulfamethoxazole-Trimethoprim) 800-160 Mg Tab 1 Tab PO BID Doxycycline Hyclate 100 Mg Cap 100 Mg PO BID Reported [Subutex] 8 Mg PO DAILY Vistaril (Hydroxyzine Pamoate) 50 Mg Cap 50 Mg PO DAILY Trazodone (Trazodone HCl) 100 Mg Tablet 100 Mg PO HS Review of Systems Except as stated in HPI: all other systems reviewed are Neg General / Constitutional: No: Fever Musculoskeletal: Positive: Pain Skin: Positive Change in Pigmentation, Positive Lesions, Positive Other ( drainage) Physical Exam Narrative GENERAL: Disheveled, female. Appears uncomfortable, in no acute distress. SKIN: Draining lesion that is obvious to right lower leg/ankle. HEAD: Normocephalic. EYES: No scleral icterus. No injection or drainage. CARDIOVASCULAR: Mildly tachycardic RESPIRATORY: No accessory muscle use. Data Data Orders Orders Sepsis Workup Initiated (08/24/17 ) Ed Urine Pregnancytest Poc (08/24/17 18:01) [facility] Medical Decision Making Medical Screen Exam Complete: Yes Emergency Medical Condition: Yes Differential Diagnosis Abscess versus cellulitis versus sepsis versus other Narrative Course Patient is a 27-year-old female presenting to emergency for evaluation of multiple abscesses on her arm and leg secondary to IV drug use. She is currently on antibiotics but is feeling outpatient therapy. Vital signs reviewed, patient is mildly tachycardic on arrival, she is anxious appearing in triage. Patient is awaiting bed placement. Patient presented to the triage desk, she states that she couldn't wait any longer. She was encouraged to stay to be fully evaluated, discussed possible adverse outcomes. Patient continued to decline care. Patient Zoya Goodwin has decided to leave the hospital against medical advice. This patient has the capacity to refuse care and understands the risks of leaving, including permanent disability and/or , and has had an opportunity to ask questions about her condition. The patient has been informed that she may return for care at any time, and follow up has been arranged/ advised. Diagnosis Primary Impression: Left against medical advice Disposition: 07 AGAINST MEDICAL ADVICE Hui Washburn Aug 31, 2017 12:25
== END 2017-08-24 22:00 | disposition left against medical advice (07) ==
LOC: NED 17:44
DX: L02.818 Cutaneous abscess of other sites (principal); R00.0 Tachycardia, unspecified; F11.90 Opioid use, unspecified, uncomplicated; F90.9 Attention-deficit hyperactivity disorder, unspecified type; F41.8 Other specified anxiety disorders; F17.210 Nicotine dependence, cigarettes, uncomplicated
CPT/HCPCS: 99283

== ENCOUNTER → 2017-08-25 00:01 | Emergency (ER) | payer SELFPAY ==
[~2017-08-25 00:01] MED LIST changes: +CLIN300C5 PO
== END | disposition left against medical advice (07) ==
LOC: NED 00:01
DX: Z53.21 Procedure and treatment not carried out due to patient leaving prior to being seen by health care provider (principal)
CPT/HCPCS: 99281

== ENCOUNTER 2017-08-31 02:43 | Emergency (ER) | payer SELFPAY ==
[~2017-08-31] VITALS: Ht 162.6 cm; Wt 55.0 kg
[~2017-08-31 02:43] MED LIST changes: -CLIN300C5 PO
[2017-08-31 02:50] VITALS: BP 130/79; PULSE 108; RESP 16; TEMP 98.9; O2SAT 99
[2017-08-31] MEDS ORDERED: CLIN300C5 PO (03:39)
[2017-08-31] MEDS ORDERED: BACT800T5 PO (03:39)
--- NOTE | 2017-08-31 03:39 | PD ---
HPI . Skin problem Chief Complaint: Skin Problem Time Seen by Provider: 02:57 Travel History International Travel<30 days: No Contact w/Intl Traveler<30days: No Traveled to known affect area: No History of Present Illness HPI 27-year-old female presents for evaluation of bilateral lower pretibial surface abscesses, being treated with Bactrim and clindamycin and local wound care, patient states she needs medical clearance to present back to detox. Patient was in detox 2 days ago left on her record, and wishes to return, and stated that the nurses at intake for detox requested she be evaluated. Patient denies any fevers chills sweats, notes interval improvement of her wounds, however notes that there is still some persistence. Drainage of both wounds left greater than right. PFSH Past Medical History Narrative Medical Past medical history reviewed Hx Anticoagulant Therapy: No ADHD: Yes Arthritis: No Asthma: No Blood Disorders: No Bipolar Disorder: Yes Anxiety: Yes Depression: Yes Heart Rhythm Problems: No Cancer: No Cardiovascular Problems: No High Cholesterol: No Chemotherapy: No Chest Pain: No Congestive Heart Failure: No COPD: No Cerebrovascular Accident: No Diabetes: No Diminished Hearing: No Endocrine: No Gastrointestinal Disorders: Yes GERD: No Genitourinary: No Hepatitis: Yes (C) Hiatal Hernia: No Heparin Induced Thrombocytopen: No Hypertension: No Immune Disorder: No Implanted Vascular Access Dvce: No Kidney Stones: No Musculoskeletal: No Neurologic: No Psychiatric: No Reproductive: No Respiratory: No Immunizations Current: Yes Migraines: No Radiation Therapy: No Renal Failure: No Seizures: No Sleep Apnea: No Thyroid Disease: No Ulcer: No PNEUMOCCOCAL Vaccine (Year): 2008 ?: Not Menopausal: No : 2 Para: 1 Miscarriage: 0 : 1 Past Surgical History Abdominal Surgery: No Appendectomy: No Cardiac Surgery: No Cholecystectomy: No Ear Surgery: No Endocrine Surgery: No Eye Surgery: No Genitourinary Surgery: No Gynecologic Surgery: No Neurologic Surgery: No Oral Surgery: No Thoracic Surgery: No Other Surgery: No Social History Alcohol Use: No Tobacco Use: Yes (1 PPD) Substance Use: Yes (meth and heroin ) Allergies-Medications (Allergen,Severity, Reaction): Coded Allergies: vancomycin (Unverified Allergy, Severe, Itching, 08/31/17) 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, Severe, 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 Reported Meds & Prescriptions Reported Meds & Active Scripts Active Hibiclens Topical (Chlorhexidine Gluconate) 4% Liq 1 Applic TOPICAL ONCE Cleocin (Clindamycin HCl) 150 Mg Cap 300 Mg PO Q6H 10 Days Bactrim DS (Sulfamethoxazole-Trimethoprim) 800-160 Mg Tab 1 Tab PO BID Bactrim DS (Sulfamethoxazole-Trimethoprim) 800-160 Mg Tab 1 Tab PO BID Doxycycline Hyclate 100 Mg Cap 100 Mg PO BID Reported [Subutex] 8 Mg PO DAILY Vistaril (Hydroxyzine Pamoate) 50 Mg Cap 50 Mg PO DAILY Trazodone (Trazodone HCl) 100 Mg Tablet 100 Mg PO HS Narrative Medication Allergies and medications reviewed Review of Systems Except as stated in HPI: all other systems reviewed are Neg General / Constitutional: No: Fever Eyes: No: Visual changes HENT: No: Headaches Cardiovascular: No: Chest Pain or Discomfort Respiratory: No: Shortness of Breath Gastrointestinal: No: Abdominal Pain Genitourinary: No: Dysuria Musculoskeletal: No: Pain Skin: Positive Rash Neurologic: No: Weakness Psychiatric: No: Depression Endocrine: No: Polydipsia Hematologic/Lymphatic: No: Easy Bruising Physical Exam Narrative GENERAL: Awake and alert, oriented 3, no acute distress. Vital signs afebrile normal and stable SKIN: Warm and dry. Color is normal diaphoresis cyanosis or pallor HEAD: Atraumatic. Normocephalic. EYES: Pupils equal and round. No scleral icterus. No injection or drainage. ENT: No nasal bleeding or discharge. Mucous membranes pink and moist. NECK: Trachea midline. No JVD. CARDIOVASCULAR: Regular rate and rhythm. RESPIRATORY: No accessory muscle use. Clear to auscultation. Breath sounds equal bilaterally. GASTROINTESTINAL: Abdomen soft, non-tender, nondistended. Hepatic and splenic margins not palpable. MUSCULOSKELETAL: Bilateral lower extremity pretibial surface lower anterior open draining wound on patient's left leg approximately 1.5 cm ulceration, with minimal surrounding edema, no foul smell. Right leg, smaller central ulceration however mild edema, and surrounding erythema. Neurovascular intact NEUROLOGICAL: Awake and alert. No obvious cranial nerve deficits. Motor grossly within normal limits. Five out of 5 muscle strength in the arms and legs. Normal speech. PSYCHIATRIC: Appropriate mood and affect; insight and judgment normal. Data Data Last Documented VS Vital Signs Date Time Temp Pulse Resp B/P (MAP) Pulse Ox O2 Delivery O2 Flow Rate FiO2 08/31/17 02:50 98.9 108 16 130/79 (96) 99 MDM Medical Decision Making Medical Screen Exam Complete: Yes Emergency Medical Condition: Yes Medical Record Reviewed: Yes Differential Diagnosis Bilateral leg abscesses, bilateral leg ulcerations Narrative Course Patient shown by nursing staff to do wet-to-dry dressings, careful instruction on dressing changes at least twice daily as shown, warm soaks, antibiotics. Diagnosis Primary Impression: Skin lesion of left lower extremity Additional Impression: Skin lesion of right lower extremity Patient Instructions: Abscess (ED), General Instructions Additional Instructions: Warm soaks to bilateral wounds. Dressing change twice daily with wet to dry dressings as shown. Keep covered Continue Bactrim double strength 1 tablet twice daily for 10 days, clindamycin 300 mg 4 times daily for 10 days. Probiotics as discussed. Follow-up with your doctor. Return for worsening Scripts Clindamycin (Clindamycin) 300 Mg Cap 300 MG PO Q6H for Infection for 7 Days, #28 CAP 0 Refills Prov: Joey Otero MD 08/31/17 Sulfamethoxazole-Trimethoprim (Bactrim DS) 800-160 Mg Tab 1 TAB PO BID for Infection, #20 TAB 0 Refills Prov: Joey Otero MD 08/31/17 Disposition: 01 DISCHARGE HOME Condition: Stable Joey Otero MD Aug 31, 2017 03:39
== END 2017-08-31 03:59 | disposition home or self-care (01) ==
LOC: NEPC 02:43
DX: L98.9 Disorder of the skin and subcutaneous tissue, unspecified (principal); F90.9 Attention-deficit hyperactivity disorder, unspecified type; F31.9 Bipolar disorder, unspecified; F41.9 Anxiety disorder, unspecified; Z86.19 Personal history of other infectious and parasitic diseases; Z79.899 Other long term (current) drug therapy; Z88.5 Allergy status to narcotic agent
CPT/HCPCS: 99284

== ENCOUNTER 2018-03-17 20:02 | Observation (INO) ==
[2018-03-17] MEDS ORDERED: Sod Chloride 0.9% Inj 1,000 ML IV.SIG ONE (20:22)
--- NOTE | 2018-03-17 20:40 | ED ---
HPI General Chief Complaint: Overdose Stated Complaint: Overdose Time Seen by Provider: 03/17/18 20:22 Source: patient, EMS and police Mode of arrival: EMS History of Present Illness HPI narrative: Patient is a 27-year-old female, past medical history significant for polysubstance abuse, who presents from [facility] for altered mental status. She went there today to try and get clean at which time they noted her to be too agitated for them to handle at this point in time. Patient will not state what drug she took today. EMS states that her heart rate was in the 150s and blood pressure was stable they did not obtain a blood glucose. Recent trauma. She states that she just wants help getting clean. complaint: intoxication Onset (ago): hour(s) Severity: severe Context: drug abuse Associated symptoms: denies other symptoms Related Data Home Medications Medication Instructions Recorded Confirmed bupropion HCl 150 mg PO QAM 03/18/18 03/18/18 cephalexin [Keflex] 500 mg PO Q6HR 03/18/18 03/18/18 hydroxyzine pamoate 50 mg PO BID PRN 03/18/18 03/18/18 mupirocin 1 applic TOPICAL BID 03/18/18 03/18/18 trazodone 150 mg PO HS 03/18/18 03/18/18 Previous Rx's Medication Instructions Recorded ibuprofen 600 mg PO TID PRN #21 tab 03/02/18 cephalexin [Keflex] 500 mg PO Q6H 7 Days #28 cap 03/17/18 sulfamethoxazole-trimethoprim 1 tab PO BID 7 Days #14 tab 03/17/18 [Bactrim DS] Allergies Allergy/AdvReac Type Severity Reaction Status Date / Time vancomycin AdvReac Severe Itching, Verified 03/18/18 00:49 RASH Review of Systems Except as stated in HPI: all other systems reviewed are negative Constitutional Denies fever(s) Eyes Denies blurry vision ENT Denies headache(s) and Denies nasal congestion Cardiovascular Denies chest pain Respiratory Denies dyspnea Gastrointestinal Denies abdominal pain Genitourinary Denies flank pain Musculoskeletal Denies back pain Integumentary/Breasts Denies rash Neurologic Denies headache(s) Psychiatric Reports anxiety, Reports difficulty concentrating and Denies suicidal ideation [facility] Medical History Medical History Anxiety (Acute) Bipolar 1 disorder (Acute) Depression (Acute) Insomnia (Acute) Polysubstance abuse (Acute) Surgical History Surgical History No history of previous surgery (Acute) Social History Social History Substance History: Active Abuse Second Hand Smoke Exposure: Yes Smoking Status: Current every day smoker Tobacco Type: Cigarettes How Often Do You Have a Drink Containing Alcohol: Never Immunization History Tetanus Immunization: Unsure Hx Influenza Vaccine This Season: Unable to Assess Exam Narrative Exam Narrative: GENERAL: Agitated but temporarily redirectable SKIN: Focused skin assessment warm/dry. No Rashes. Diffuse track meza. HEAD: Atraumatic. Normocephalic. EYES: Pupils equal and round. No scleral icterus. No injection or drainage. ENT: No nasal bleeding or discharge. Mucous membranes pink and moist. NECK: Trachea midline. No JVD. CARDIOVASCULAR: Tachycardic but regular. No murmur appreciated. RESPIRATORY: No accessory muscle use. Clear to auscultation. Breath sounds equal bilaterally. GASTROINTESTINAL: Abdomen soft, non-tender, nondistended. Hepatic and splenic margins not palpable. MUSCULOSKELETAL: No obvious deformities. No clubbing. No cyanosis. No edema. NEUROLOGICAL: Awake and alert. No obvious cranial nerve deficits. Motor grossly within normal limits. Normal speech. PSYCHIATRIC: Agitated and anxious. Course Hospital Course: On arrival patient was placed on a manager monitoring and attempts at IV access were established. She was agitated initially and that she was given 2 mg Ativan IM that we could attempt IV access again. Labs were then ordered. Initial Documented Vital Signs Pulse Rate 147 H 03/17/18 20:08 Respiratory Rate 28 H 03/17/18 20:08 Blood Pressure 130/89 03/17/18 20:08 Pulse Oximetry 99 03/17/18 20:08 Last Documented Vital Signs Temperature 99.0 F 03/18/18 16:00 Pulse Rate 107 H 03/18/18 16:00 Respiratory Rate 18 03/18/18 16:00 Blood Pressure 118/69 03/18/18 16:00 Pulse Oximetry 97 03/18/18 16:00 Sign Out Sign Out Data: Patient Sign Out occurred on 03/18/18 at 09:27. Patient's care was discussed, and care was transferred from Radha Lopez MD to Blade Winslow MD. Sign Out Comment: Psychiatry evaluation and re-evaluation pending. Last updated by Radha Lopez MD at 03/18/18 08:13 Post-Handoff Eval: I have evaluated this patient with the nurse. She is still uncooperative and confused and under the influence appearing despite 14 hours of observation. Given her active IV drug abuse and low-grade temperature of 99.7, I have concern for endocarditis with the possibility of many other infectious problems. I am recommending hospitalization. The patient had no IV when I evaluated her. The nurse placed a 20-gauge in her left hand. We antira 2 sets of blood cultures. I reviewed her labs. I discussed with the hospitalist who will admit. The patient will get psychiatry consultation as she is under Lopez act. Patient Sign Out occurred on 03/18/18 at 09:42. Patient's care was discussed, and care was transferred from Blaed Winslow MD to Shaun Grimaldo MD. Sign Out Comment: Patient erroneously signed up for. I did not see or evaluate patient. Last updated by Blade Winslow MD at 03/18/18 09:40 Post-Handoff Eval: see above post handoff note Medical Decision Making MDM Narrative Medical decision making narrative: Patient is a 27-year-old female who presented with complaint of acute intoxication under a Lopez act. She was agitated and bizarre on arrival. Was given 2 mg of Ativan after which she improved. She was watched in the ED's for several hours at which time she again had agitated delirium and was given another milligram of Ativan. After this she is markedly improved and is doing much better at this time. She has not yet been seen by psychiatry. Differential Diagnosis Differential Diagnosis: Differential diagnosis includes but is not limited to metabolic disturbance, drug intoxication, delirium. Medical Records Medical records reviewed: Yes I reviewed the patient's medical records. Lab Data Lab results reviewed: Yes I reviewed the patient's lab results. Lab results narrative: Labs reveal a non-anion gap acidosis with a normal Tylenol and salicylate level. Result diagrams: 03/18/18 15:25 03/18/18 00:19 Lab Results 03/18/18 03/18/18 03/18/18 Range/Units 00:19 00:19 06:55 WBC (4.0-11.0) th/mm3 RBC (4.00-5.30) mil/mm3 Hgb (11.6-15.3) gm/dL Hct (35.0-46.0) % MCV (80.0-100.0) fL MCH (27.0-34.0) pg MCHC (32.0-36.0) % RDW (11.6-17.2) % Plt Count (150-450) th/mm3 MPV (7.0-11.0) fL Neut % (Auto) (16.0-70.0) % Lymph % (Auto) (9.0-44.0) % [place] % (Auto) (0.0-8.0) % Eos % (Auto) (0.0-4.0) % Baso % (Auto) (0.0-2.0) % Neut # (Auto) (1.8-7.7) th/mm3 Lymph # (Auto) (1.0-4.8) th/mm3 [place]munds # (Auto) (0.0-0.9) th/mm3 Eos # (Auto) (0.0-0.4) th/mm3 Baso # (Auto) (0.0-0.2) th/mm3 WBC Differential Differential Comment Sodium 138 (136-145) meq/L Potassium 4.8 (3.5-5.1) meq/L Chloride 106 (98-107) meq/L Carbon Dioxide 18.5 L (21.0-32.0) meq/L Anion Gap 14 (5-15) meq/L BUN 6 L (7-18) mg/dL Creatinine 0.67 (0.50-1.00) mg/dL Estimated GFR Greater than 89 (>89) mL/min Random Glucose 71 L (74-106) mg/dL Lactic Acid (0.4-2.0) mmol/L Calcium 8.6 (8.5-10.1) mg/dL Ammonia (11-32) mcmol/L Urine Color (Yellw/Straw) Urine Clarity (Clear) Urine pH (5.0-8.5) Ur Specific [place] (1.002-1.035) Urine Protein (Neg-Trace) mg/dL Urine Glucose (UA) (Negative) mg/dL Urine Ketones (Negative) mg/dL Urine Occult Blood (Negative) Urine Nitrate (Negative) Urine Bilirubin (Negative) Urine Urobilinogen (Less than 2) mg/dL Ur Leukocyte Esterase (Negative) Urine WBC (0-5) /hpf Urine Mucus (Occasional) /lpf Micro UA Comment Urine Culture Comments Salicylates Less than 1.7 L (2.8-20.0) mg/dL Urine Opiates Screen Pos H (Neg) Acetaminophen Less than 2.0 L (10.0-30.0) mcg/mL Ur Barbiturates Screen Neg (Neg) Ur Amphetamines Screen Pos H (Neg) U Benzodiazepines Scrn Neg (Neg) Urine Cocaine Screen Pos H (Neg) U Cannabinoids Screen Neg (Neg) Serum Alcohol Less than 3 (0-5) mg/dL 03/18/18 03/18/18 03/18/18 Range/Units 06:55 15:25 15:25 WBC 5.7 (4.0-11.0) th/mm3 RBC 4.55 (4.00-5.30) mil/mm3 Hgb 13.7 (11.6-15.3) gm/dL Hct 38.9 (35.0-46.0) % MCV 85.6 (80.0-100.0) fL MCH 30.2 (27.0-34.0) pg MCHC 35.3 (32.0-36.0) % RDW 13.1 (11.6-17.2) % Plt Count 200 (150-450) th/mm3 MPV 8.9 (7.0-11.0) fL Neut % (Auto) 64.1 (16.0-70.0) % Lymph % (Auto) 24.9 (9.0-44.0) % Edmunds % (Auto) 8.6 H (0.0-8.0) % Eos % (Auto) 2.1 (0.0-4.0) % Baso % (Auto) 0.3 (0.0-2.0) % Neut # (Auto) 3.7 (1.8-7.7) th/mm3 Lymph # (Auto) 1.4 (1.0-4.8) th/mm3 [place] # (Auto) 0.5 (0.0-0.9) th/mm3 Eos # (Auto) 0.1 (0.0-0.4) th/mm3 Baso # (Auto) 0.0 (0.0-0.2) th/mm3 WBC Differential . Differential Comment Auto diff final Sodium (136-145) meq/L Potassium (3.5-5.1) meq/L Chloride (98-107) meq/L Carbon Dioxide (21.0-32.0) meq/L Anion Gap (5-15) meq/L BUN (7-18) mg/dL Creatinine (0.50-1.00) mg/dL Estimated GFR (>89) mL/min Random Glucose (74-106) mg/dL Lactic Acid (0.4-2.0) mmol/L Calcium (8.5-10.1) mg/dL Ammonia 53 H (11-32) mcmol/L Urine Color Yellow (Yellw/Straw) Urine Clarity Clear (Clear) Urine pH 5.0 (5.0-8.5) Ur Specific [place] 1.018 (1.002-1.035) Urine Protein 30 H (Neg-Trace) mg/dL Urine Glucose (UA) Negative (Negative) mg/dL Urine Ketones 80 or greater (Negative) mg/dL Urine Occult Blood Negative (Negative) Urine Nitrate Negative (Negative) Urine Bilirubin Negative (Negative) Urine Urobilinogen 2.0 H (Less than 2) mg/dL Ur Leukocyte Esterase Negative (Negative) Urine WBC 3 (0-5) /hpf Urine Mucus Few H (Occasional) /lpf Micro UA Comment Culture not ind Urine Culture Comments Culture not ind Salicylates (2.8-20.0) mg/dL Urine Opiates Screen (Neg) Acetaminophen (10.0-30.0) mcg/mL Ur Barbiturates Screen (Neg) Ur Amphetamines Screen (Neg) U Benzodiazepines Scrn (Neg) Urine Cocaine Screen (Neg) U Cannabinoids Screen (Neg) Serum Alcohol (0-5) mg/dL 03/18/18 Range/Units 15:25 WBC (4.0-11.0) th/mm3 RBC (4.00-5.30) mil/mm3 Hgb (11.6-15.3) gm/dL Hct (35.0-46.0) % MCV (80.0-100.0) fL MCH (27.0-34.0) pg MCHC (32.0-36.0) % RDW (11.6-17.2) % Plt Count (150-450) th/mm3 MPV (7.0-11.0) fL Neut % (Auto) (16.0-70.0) % Lymph % (Auto) (9.0-44.0) % [place] % (Auto) (0.0-8.0) % Eos % (Auto) (0.0-4.0) % Baso % (Auto) (0.0-2.0) % Neut # (Auto) (1.8-7.7) th/mm3 Lymph # (Auto) (1.0-4.8) th/mm3 [place] # (Auto) (0.0-0.9) th/mm3 Eos # (Auto) (0.0-0.4) th/mm3 Baso # (Auto) (0.0-0.2) th/mm3 WBC Differential Differential Comment Sodium (136-145) meq/L Potassium (3.5-5.1) meq/L Chloride (98-107) meq/L Carbon Dioxide (21.0-32.0) meq/L Anion Gap (5-15) meq/L BUN (7-18) mg/dL Creatinine (0.50-1.00) mg/dL Estimated GFR (>89) mL/min Random Glucose (74-106) mg/dL Lactic Acid 0.8 (0.4-2.0) mmol/L Calcium (8.5-10.1) mg/dL Ammonia (11-32) mcmol/L Urine Color (Yellw/Straw) Urine Clarity (Clear) Urine pH (5.0-8.5) Ur Specific [place] (1.002-1.035) Urine Protein (Neg-Trace) mg/dL Urine Glucose (UA) (Negative) mg/dL Urine Ketones (Negative) mg/dL Urine Occult Blood (Negative) Urine Nitrate (Negative) Urine Bilirubin (Negative) Urine Urobilinogen (Less than 2) mg/dL Ur Leukocyte Esterase (Negative) Urine WBC (0-5) /hpf Urine Mucus (Occasional) /lpf Micro UA Comment Urine Culture Comments Salicylates (2.8-20.0) mg/dL Urine Opiates Screen (Neg) Acetaminophen (10.0-30.0) mcg/mL Ur Barbiturates Screen (Neg) Ur Amphetamines Screen (Neg) U Benzodiazepines Scrn (Neg) Urine Cocaine Screen (Neg) U Cannabinoids Screen (Neg) Serum Alcohol (0-5) mg/dL Imaging Data Attestation: I personally reviewed and interpreted this imaging study as follows : My impression: No acute cardiopulmonary process Radiologist's impression: Chest X-Ray 03/17/18 20:22 CONCLUSION: No active disease. ECG Data EKG Prior to Arrival: No Attestation: I personally reviewed and interpreted this ECG as follows: (Sinus- appearing tachycardia at a rate of 138 bpm. Erratic baseline waking me unable to discern there are acute ST or T-wave changes throughout most of the EKG.) Discharge Plan Discharge Disposition Patient Disposition: 30 Still Patient Discharge Details Diagnosis: Intoxication by drug, Fever, IVDU (intravenous drug user) Physicians Team ED Provider: Shaun Grimaldo Primary Care Provider: Primary Care Anu Morales Attending Provider: Suresh Mcbride Status ED Status: Left Department Discharge Information Discharge Date/Time: 03/18/18 12:38
--- NOTE | 2018-03-17 21:09 | XR ---
EXAM DATE: 03/17/2018 8:59 PM EDT AGE/SEX: 27 years / Female INDICATIONS: Shortness of breath. CLINICAL DATA: This is the patient's initial encounter. Patient reports that signs and symptoms have been present for 1 day and indicates a pain score of 0/10. MEDICAL/SURGICAL HISTORY: Hepatitis C. None. COMPARISON: [facility] – [place], CHEST PA & LAT, 07/11/2017. . FINDINGS: A single AP view of the chest demonstrates the lungs to be symmetrically aerated without evidence of mass, infiltrate or effusion. The cardiomediastinal contours are unremarkable. Osseous structures a re intact. CONCLUSION: No active disease. Electronically signed by: Clement Roger MD 03/17/2018 9:08 PM EDT
[2018-03-18 00:47] LABS: Anion Gap 14 meq/L (5-15); Blood Urea Nitrogen 6 mg/dL (7-18); Calcium 8.6 mg/dL (8.5-10.1); Carbon Dioxide 18.5 meq/L (21.0-32.0); Chloride 106 meq/L (98-107); Glomerular Filtration Rate Greater Than 89 mL/min (>89); Glucose,Random 71 mg/dL (74-106); Potassium 4.8 meq/L (3.5-5.1)
[2018-03-18 00:51] LABS: Sodium 138 meq/L (136-145)
[2018-03-18 07:30] LABS: Bilirubin,Urine Negative (Negative); Clarity,Urine Clear (Clear); Color,Urine Yellow (Yellw/Straw); Glucose,Urine (UA) Negative (Negative); Leukocyte Esterase,Urine Negative (Negative); Mucus,Urine Few /lpf (Occasional); Nitrite,Urine Negative (Negative); Specific Gravity,Urine 1.018 (1.002-1.035)
[2018-03-18 07:34] LABS: Amphetamine Screen,Urine Pos (Neg); Barbiturate Screen,Urine Neg (Neg); Cannabinoid Screen,Urine Neg (Neg); Cocaine Screen,Urine Pos (Neg)
[2018-03-18 07:44] LABS: Opiate Screen,Urine Pos (Neg)
[2018-03-18] MEDS ORDERED: Bisacodyl 10 MG Supp RECTAL PRN (10:42)
[2018-03-18] MEDS ORDERED: Acetaminophen 325 MG Tablet PO PRN (10:42)
--- NOTE | 2018-03-18 14:01 | ECG ---
Date Performed: 03/17/2018 Time Performed: 20:21:01 PTAGE: 27 years EKG: SINUS TACHYCARDIA NONSPECIFIC T-WAVE ABNORMALITY ABNORMAL RHYTHM ECG Compared to PREVIOUS TRACING , now tachycardic DOCTOR: Leatha Bruno Interpretating Date/Time 03/18/2018 13:59:10
--- NOTE | 2018-03-18 15:08 | P.HP ---
History of Present Illness Service: Hospitalist Primary Care Physician: No Primary Care Physician Chief Complaint: Altered mental status, IVDU. History of Present Illness: Ms. Goodwin is a pleasant 27-year-old female with a long history of polysubstance abuse including IVDU who presented to the emergency department from [facility] due to altered mental status. She was too agitated at the facility. At the time of this interview, patient is very drowsy but wakes up on verbal and physical stimuli. A lady who identifies herself as patient's sponsor is in the room and provides additional history. Apparently, patient was clean for about 4 months and then relapsed. She has been on the street recently. She has had multiple skin lesions on her face as well as thighs and some of them had drainage. However, patient did not have any cough, chest pain, shortness of breath, fever, chills. No changes in bowel or bladder habits. Family history: Sponsor did not know of any family history. Inpatient Certification: I certify that the inpatient services were ordered in accordance with Medicare regulations governing the order. This includes certification that hospital inpatient services are reasonable and necessary and in the case of services not specified as inpatient-only under 42 CFR 419.22(n), that they are appropriately provided as inpatient services in accordance to with the 2-midnight benchmark under 43 CFR 412.3(e) Review of Systems All other systems reviewed negative except as stated in HPI PMFSH - History History Provided By: Patient - Medical History Medical History: Medical History (Last Reviewed 03/17/18 @ 20:37 by Radha Lopez MD) Anxiety Bipolar 1 disorder Depression Insomnia Polysubstance abuse - Surgical History Surgical History: Surgical History (Last Updated 03/18/18 @ 14:52 by Suresh Mcbride DO) No history of previous surgery - Tobacco History Second Hand Smoke Exposure: Yes Tobacco Use In Past 30 Days: Yes Smoking Status: Current every day smoker Tobacco Type: Cigarettes - Alcohol History How Often Do You Have a Drink Containing Alcohol: Never - Substance Use History Substance History: Active Abuse - Substance Use Type Heroin Status: Active Route Used: Intravenously Methamphetamine Status: Active Route Used: Intravenously Crack/Cocaine Status: Active Route Used: Inhalation - Immunization History Tetanus Immunization: Unsure Hx Influenza Vaccine This Season: Unable to Assess Medications and Allergies Active Medications: Active Medications Acetaminophen (Tylenol) 650 mg PO Q4H PRN PRN Reason: Headache, fever, pain 1-5 Al Hydroxide/Mg Hydroxide (Milk Of Magnesia Liq) 30 ml PO Q12H PRN PRN Reason: Mild Constipation Bisacodyl (Dulcolax Supp) 10 mg RECTAL DAILY PRN PRN Reason: SEVERE CONSITIPATION Lactulose (Lactulose Liq) 30 ml PO DAILY PRN PRN Reason: SEVERE CONSITIPATION Mupirocin (Bactroban 2% Oint) 1 applicatio TOPICAL BID TK Sennosides (Senokot) 17.2 mg PO Q12H PRN PRN Reason: Moderate Constipation Allergies Allergy/AdvReac Type Severity Reaction Status Date / Time vancomycin AdvReac Severe Itching, Verified 03/18/18 00:49 RASH Home Medications Medication Instructions Recorded Confirmed Type bupropion HCl 150 mg PO QAM 03/18/18 03/18/18 History cephalexin [Keflex] 500 mg PO Q6HR 03/18/18 03/18/18 History hydroxyzine pamoate 50 mg PO BID PRN 03/18/18 03/18/18 History mupirocin 1 applic TOPICAL BID 03/18/18 03/18/18 History trazodone 150 mg PO HS 03/18/18 03/18/18 History Exam Vital signs: Vital Signs 03/17/18 20:08 03/17/18 20:12 03/17/18 20:22 Temperature 99.7 F H Pulse Rate 147 H 144 H Respiratory Rate 28 H Blood Pressure 130/89 Pulse Oximetry 99 99 03/17/18 21:00 03/17/18 22:00 03/17/18 23:00 Temperature Pulse Rate 120 H 112 H 98 H Respiratory Rate 20 18 16 Blood Pressure 127/60 132/61 118/64 Pulse Oximetry 99 99 100 03/18/18 00:00 03/18/18 01:00 03/18/18 02:00 Temperature Pulse Rate 105 H 95 H 102 H Respiratory Rate 16 16 19 Blood Pressure 118/74 127/75 94/52 L Pulse Oximetry 99 98 100 03/18/18 03:00 03/18/18 04:00 03/18/18 05:00 Temperature Pulse Rate 100 H 98 H 104 H Respiratory Rate 17 16 18 Blood Pressure 98/53 L 108/53 L 107/52 L Pulse Oximetry 100 99 99 03/18/18 06:00 03/18/18 06:35 03/18/18 09:58 Temperature 98.5 F Pulse Rate 100 H 98 H 95 H Respiratory Rate 18 18 18 Blood Pressure 109/57 L 113/59 L 142/83 H Pulse Oximetry 100 99 98 03/18/18 12:51 Temperature 98.0 F Pulse Rate 98 H Respiratory Rate 20 Blood Pressure 140/65 Pulse Oximetry 100 Intake & Output 03/17/18 03/18/18 03/18/18 18:59 06:59 18:59 Weight 71.178 kg Narrative: GENERAL: Drowsy, wakes up on verbal commands, Able to follow commands. SKIN: No rashes, ecchymoses or lesions. Warm and dry. Multiple skin lesions present - one on the left cheek - dry, erythematous lesion without any active drainage. On the left thigh, there are two lesions - no active drainage. The proximal thigh lesion has some induration. HEAD: Atraumatic. Normocephalic. No temporal or scalp tenderness. EYES: Pupils equal round and reactive. No injection or drainage. ENT: Nose without bleeding, purulent drainage or septal hematoma. Airway patent. NECK: Trachea midline. No lymphadenopathy. Supple, nontender, no meningeal signs. CARDIOVASCULAR: Regular rate and rhythm without murmurs, gallops, or rubs. No JVD. RESPIRATORY: Clear to auscultation. Breath sounds equal bilaterally. No wheezes , rales, or rhonchi. GASTROINTESTINAL: Abdomen soft, non-tender, nondistended. No guarding. MUSCULOSKELETAL: Extremities without clubbing, cyanosis, or edema. NEUROLOGICAL: Drowsy, No focal deficits appreciated. Results - Labs CBC & Chem 7: 03/18/18 00:19 Labs: Laboratory Results - last 24 hr 03/18/18 03/18/18 03/18/18 00:19 00:19 06:55 Sodium 138 Potassium 4.8 Chloride 106 Carbon Dioxide 18.5 L Anion Gap 14 BUN 6 L Creatinine 0.67 Estimated GFR Greater than 89 Random Glucose 71 L Calcium 8.6 Urine Color Urine Clarity Urine pH Ur Specific Brady Urine Protein Urine Glucose (UA) Urine Ketones Urine Occult Blood Urine Nitrate Urine Bilirubin Urine Urobilinogen Ur Leukocyte Esterase Urine WBC Urine Mucus Micro UA Comment Urine Culture Comments Salicylates Less than 1.7 L Urine Opiates Screen Pos H Acetaminophen Less than 2.0 L Ur Barbiturates Screen Neg Ur Amphetamines Screen Pos H U Benzodiazepines Scrn Neg Urine Cocaine Screen Pos H U Cannabinoids Screen Neg Serum Alcohol Less than 3 03/18/18 06:55 Sodium Potassium Chloride Carbon Dioxide Anion Gap BUN Creatinine Estimated GFR Random Glucose Calcium Urine Color Yellow Urine Clarity Clear Urine pH 5.0 Ur Specific Brady 1.018 Urine Protein 30 H Urine Glucose (UA) Negative Urine Ketones 80 or greater Urine Occult Blood Negative Urine Nitrate Negative Urine Bilirubin Negative Urine Urobilinogen 2.0 H Ur Leukocyte Esterase Negative Urine WBC 3 Urine Mucus Few H Micro UA Comment Culture not ind Urine Culture Comments Culture not ind Salicylates Urine Opiates Screen Acetaminophen Ur Barbiturates Screen Ur Amphetamines Screen U Benzodiazepines Scrn Urine Cocaine Screen U Cannabinoids Screen Serum Alcohol - Imaging Impressions Chest X-Ray 03/17/18 20:22 CONCLUSION: No active disease. Caprini VTE Risk Assessment Caprini VTE Risk Assessment: No/Low Risk (score <= 1) Caprini Risk Assessment Model: Point Value = 1 Point Value = 2 Point Value = 3 Point Value = 5 Age 41-60 Minor surgery BMI > 25 kg/m2 Swollen legs Varicose veins or History of unexplained or recurrent spontaneous Oral contraceptives or hormone replacement Sepsis (< 1 month) Serious lung disease, including pneumonia (< 1 month) Abnormal pulmonary function Acute myocardial infarction Congestive heart failure (< 1 month) History of inflammatory bowel disease Medical patient at bed rest Age 61-74 Arthroscopic surgery Major open surgery (> 45 min) Laparoscopic surgery (> 45 min) Malignancy Confined to bed (> 72 hours) Immobilizing plaster cast Central venous access Age >= 75 History of VTE Family history of VTE Factor V Leiden Prothrombin [id number] Lupus anticoagulant Anticardiolipin antibodies Elevated serum homocysteine Heparin-induced thrombocytopenia Other congenital or acquired thrombophilia Stroke (< 1 month) Elective arthroplasty Hip, pelvis, or leg fracture Acute spinal cord injury (< 1 month) Prophylaxis Regimen: Total Risk Factor Score Risk Level Prophylaxis Regimen 0-1 Low Early ambulation 2 Moderate Order ONE of the following: *Sequential Compression Device (SCD) *Heparin 5000 units SQ BID 3-4 Higher Order ONE of the following medications: *Heparin 5000 units SQ TID *Enoxaparin/Lovenox 40 mg SQ daily (WT < 150 kg, CrCl > 30 mL/min) *Enoxaparin/Lovenox 30 mg SQ daily (WT < 150 kg, CrCl > 10-29 mL/min) *Enoxaparin/Lovenox 30 mg SQ BID (WT < 150 kg, CrCl > 30 mL/min) AND/OR *Sequential Compression Device (SCD) 5 or more Highest Order ONE of the following medications: *Heparin 5000 units SQ TID (Preferred with Epidurals) *Enoxaparin/Lovenox 40 mg SQ daily (WT < 150 kg, CrCl > 30 mL/min) *Enoxaparin/Lovenox 30 mg SQ daily (WT < 150 kg, CrCl > 10-29 mL/min) *Enoxaparin/Lovenox 30 mg SQ BID (WT < 150 kg, CrCl > 30 mL/min) AND *Sequential Compression Device (SCD) Assessment and Plan - Plan Ms. Goodwin is a 27-year-old female with a history of polysubstance abuse who was admitted to the hospital due to acute mental status change. She relapsed using IV drug use after 4 months. Urine drug screen was positive for opioids, amphetamines, cocaine. Acute encephalopathy - Patient is drowsy. Apparently has not slept for 4 days. - She received Ativan at midnight. - Will check CBC as well as ammonia level, Lactic acid level. Multiple skin lesions - Will start patient on Mupirocin 2% BID. Polysubstance abuse IVDU - Patient had a temp of 99.7 but so far afebrile. - Blood cultures pending. If positive, we will pursue endocarditis work up. No heart murmur appreciated. - Patient's parents are interested to get her back to [facility] for detox. Full code. SCDs.
[2018-03-18 15:36] LABS: Baso % (Auto) 0.3 % (0.0-2.0); Eos # (Auto) 0.1 th/mm3 (0.0-0.4); Eos % (Auto) 2.1 % (0.0-4.0); Hematocrit 38.9 % (35.0-46.0); Hemoglobin 13.7 gm/dL (11.6-15.3); Lymph # (Auto) 1.4 th/mm3 (1.0-4.8); Lymph % (Auto) 24.9 % (9.0-44.0); Mean Corpuscular HGB Conc 35.3 % (32.0-36.0); Mean Corpuscular Hemoglobin 30.2 pg (27.0-34.0); Mean Corpuscular Volume 85.6 fL (80.0-100.0); Mean Platelet Volume 8.9 fL (7.0-11.0); Mono # (Auto) 0.5 th/mm3 (0.0-0.9); Mono % (Auto) 8.6 % (0.0-8.0); Neut # (Auto) 3.7 th/mm3 (1.8-7.7); Neut % (Auto) 64.1 % (16.0-70.0); Platelet Count 200 th/mm3 (150-450); Red Blood Count 4.55 mil/mm3 (4.00-5.30); Red Cell Distribution Width 13.1 % (11.6-17.2); White Blood Count 5.7 th/mm3 (4.0-11.0)
--- NOTE | 2018-03-18 19:09 | P.CONPSY ---
Provisional Diagnosis Admission Date: March 18, 2018 11:12 [place] I.: Polysubstance use order History of Present Illness Service: Psychiatry Consult date: 03/18/18 Requesting Physician: Markus Goodson Reason for Consult: Lopez Act Primary Care Provider: No Primary Care Physician Family Provider: No Primary Care Physician Chief Complaint: Altered mental status, IVDU. History of Present Illness: Patient is a 27 y/o woman, single, domiciled recently at sober living facility, with past psychiatric history of depression, polysubstance use disorder (heroin, methamphetamine/benzodiazepines/crack cocaine, with prior psychiatric admissions, no prior suicide attempts or self injurious behavior, significant past medical history who was brought into the ED after having presented at [facility] for altered mental status which patient had gone to get clean and had become to agitated and was subsequently brought in under Lopez act which psychiatry was consulted for evaluation. Patient was found lying on hospital bed with mother at bedside, noted to be calm and cooperative. Patient noted to be somnolent but able to engage in interview. Patient is alert and oriented x 3, states that she had relapsed after one month sobriety at sober living facility, had spend some time in detention as patient currently under [facility] Act, and had presented herself to [facility] wanting to "get clean" and was brought to the hospital. She has difficulty recalling details surrounding event at [facility] but at this time reports feeling "tired, ok", denies any SI, HI, AVH or delusions. Patient's mother states that patient has long history of substance use, has had history of bipolar disorder with two prior psychiatric admission related to the substance abuse. She has no immediate safety concern and would like assistance to have patient referred to residential treatment program. Family psychiatric history: denies Past psychiatric history: prior diagnosis of depression, bipolar disorder as per her mother, prior psychiatric admissions (substance related), no prior suicide attempts or self injurious behavior. Substance use history: recent relapse with heroin, methamphetamine, xanax, crack cocaine, recently living in sober living facility ([facility]) Past medical history: denies Social history: single, has 5 y/o daughter, domiciled recently at sober living facility. Review of Systems All other systems reviewed negative except as stated in HPI [facility] - History History Provided By: Patient, Family Member, Medical Record - Medical History Medical History: Medical History (Last Reviewed 03/17/18 @ 20:37 by Radha Lopez MD) Anxiety Bipolar 1 disorder Depression Insomnia Polysubstance abuse - Surgical History Surgical History: Surgical History (Last Updated 03/18/18 @ 14:52 by Suresh Mcbride DO) No history of previous surgery - Tobacco History Second Hand Smoke Exposure: Yes Tobacco Use In Past 30 Days: Yes Smoking Status: Current every day smoker Tobacco Type: Cigarettes - Alcohol History How Often Do You Have a Drink Containing Alcohol: Never - Substance Use History Substance History: Active Abuse - Substance Use Type Heroin Status: Active Route Used: Intravenously Methamphetamine Status: Active Route Used: Intravenously Crack/Cocaine Status: Active Route Used: Inhalation - Immunization History Tetanus Immunization: Unsure Hx Influenza Vaccine This Season: Unable to Assess Medications and Allergies Active Medications: Active Medications Acetaminophen (Tylenol) 650 mg PO Q4H PRN PRN Reason: Headache, fever, pain 1-5 Al Hydroxide/Mg Hydroxide (Milk Of Magnesia Liq) 30 ml PO Q12H PRN PRN Reason: Mild Constipation Bisacodyl (Dulcolax Supp) 10 mg RECTAL DAILY PRN PRN Reason: SEVERE CONSITIPATION Lactulose (Lactulose Liq) 30 ml PO DAILY PRN PRN Reason: SEVERE CONSITIPATION Mupirocin (Bactroban 2% Oint) 1 applicatio TOPICAL BID [facility] Last Admin: 03/18/18 16:16 Dose: Not Given Sennosides (Senokot) 17.2 mg PO Q12H PRN PRN Reason: Moderate Constipation Allergies Allergy/AdvReac Type Severity Reaction Status Date / Time vancomycin AdvReac Severe Itching, Verified 03/18/18 00:49 RASH Home Medications Medication Instructions Recorded Confirmed Type bupropion HCl 150 mg PO QAM 03/18/18 03/18/18 History cephalexin [Keflex] 500 mg PO Q6HR 03/18/18 03/18/18 History hydroxyzine pamoate 50 mg PO BID PRN 03/18/18 03/18/18 History mupirocin 1 applic TOPICAL BID 03/18/18 03/18/18 History trazodone 150 mg PO HS 03/18/18 03/18/18 History Exam Vital signs: Vital Signs 03/17/18 20:08 03/17/18 20:12 03/17/18 20:22 Temperature 99.7 F H Pulse Rate 147 H 144 H Respiratory Rate 28 H Blood Pressure 130/89 Pulse Oximetry 99 99 03/17/18 21:00 03/17/18 22:00 03/17/18 23:00 Temperature Pulse Rate 120 H 112 H 98 H Respiratory Rate 20 18 16 Blood Pressure 127/60 132/61 118/64 Pulse Oximetry 99 99 100 03/18/18 00:00 03/18/18 01:00 03/18/18 02:00 Temperature Pulse Rate 105 H 95 H 102 H Respiratory Rate 16 16 19 Blood Pressure 118/74 127/75 94/52 L Pulse Oximetry 99 98 100 03/18/18 03:00 03/18/18 04:00 03/18/18 05:00 Temperature Pulse Rate 100 H 98 H 104 H Respiratory Rate 17 16 18 Blood Pressure 98/53 L 108/53 L 107/52 L Pulse Oximetry 100 99 99 03/18/18 06:00 03/18/18 06:35 03/18/18 09:58 Temperature 98.5 F Pulse Rate 100 H 98 H 95 H Respiratory Rate 18 18 18 Blood Pressure 109/57 L 113/59 L 142/83 H Pulse Oximetry 100 99 98 03/18/18 12:51 03/18/18 16:00 Temperature 98.0 F 99.0 F Pulse Rate 98 H 107 H Respiratory Rate 20 18 Blood Pressure 140/65 118/69 Pulse Oximetry 100 97 Intake & Output 03/17/18 03/18/18 03/18/18 18:59 06:59 18:59 Weight 71.178 kg - Constitutional no acute distress, disheveled, cooperative Mental Status Examination Appearance: Disheveled Consciousness: Alert Orientation: Person, Place Speech: Unremarkable Language: Adequate Fund of Knowledge: Inadequate Attention and Concentration: Easily distracted Memory: Impaired (surrounding events of intoxication) Mood: Other ("ok") Affect: Blunt Thought Process & Associations: Intact, Linear, Other (concrete) Thought Content: Appropriate Hallucination Type: None Delusion Type: None Suicidal Ideation: No Suicidal Plan: No Suicidal Intention: No Homicidal Ideation: No Homicidal Plan: No Homicidal Intention: No Insight: Fair Judgment: Impulsive Assessment and Plan - Assessment (1) Polysubstance abuse Code(s): F19.10 - Other psychoactive substance abuse, uncomplicated Status: Acute - Plan Plan: Estimated LOS: [] days Patient is a 27 y/o woman, single, domiciled recently at sober living facility, who was brought into the ED after having presented at [facility] for altered mental status which patient had gone to get clean and had become to agitated and was subsequently brought in under Lopez act which psychiatry was consulted for evaluation. Patient recently intoxicated and behavior likely stemming from polysubstance intoxication. Patient at this time denies any suicidal or homicidal ideation, denies any perceptual disturbances or delusions at this time, noted to be somewhat lethargic from recent intoxication but able to engage effectively for interview. Will lift Lopez Act. Recommend telephonic case manager/social work to assist in referral back to sober living facilities or residential treatment program to address substance use. Consult appreciated. Justification for Continued Inpatient Stay: At risk for further decompensation at lower level of care.
[2018-03-19 07:24] LABS: Baso % (Auto) 0.3 % (0.0-2.0); Eos # (Auto) 0.1 th/mm3 (0.0-0.4); Eos % (Auto) 3.3 % (0.0-4.0); Hematocrit 39.8 % (35.0-46.0); Hemoglobin 13.4 gm/dL (11.6-15.3); Lymph # (Auto) 1.1 th/mm3 (1.0-4.8); Lymph % (Auto) 26.8 % (9.0-44.0); Mean Corpuscular HGB Conc 33.7 % (32.0-36.0); Mean Corpuscular Hemoglobin 29.3 pg (27.0-34.0); Mean Corpuscular Volume 86.8 fL (80.0-100.0); Mean Platelet Volume 9.1 fL (7.0-11.0); Mono # (Auto) 0.5 th/mm3 (0.0-0.9); Mono % (Auto) 11.6 % (0.0-8.0); Neut # (Auto) 2.4 th/mm3 (1.8-7.7); Platelet Count 184 th/mm3 (150-450); Red Blood Count 4.59 mil/mm3 (4.00-5.30); Red Cell Distribution Width 13.4 % (11.6-17.2); White Blood Count 4.2 th/mm3 (4.0-11.0)
[2018-03-19 08:01] LABS: Anion Gap 9 meq/L (5-15); Blood Urea Nitrogen 8 mg/dL (7-18); Calcium 8.4 mg/dL (8.5-10.1); Carbon Dioxide 24.8 meq/L (21.0-32.0); Chloride 110 meq/L (98-107); Glomerular Filtration Rate Greater Than 89 mL/min (>89); Glucose,Random 103 mg/dL (74-106); Potassium 3.5 meq/L (3.5-5.1); Sodium 144 meq/L (136-145)
--- NOTE | 2018-03-19 09:47 | P.PN ---
Subjective Interval history: Follow up for IVDU, skin lesions. Patient is more alert today. Denies any chest pain, shortness of breath, fever or chills. Physical Exam Vital signs: Vital Signs 03/18/18 09:58 03/18/18 12:51 03/18/18 16:00 Temperature 98.5 F 98.0 F 99.0 F Pulse Rate 95 H 98 H 107 H Respiratory Rate 18 20 18 Blood Pressure 142/83 H 140/65 118/69 Pulse Oximetry 98 100 97 03/18/18 19:33 03/18/18 20:00 03/18/18 23:21 Temperature 98.4 F 98.2 F Pulse Rate 108 H 97 H Respiratory Rate 16 16 16 Blood Pressure 128/79 126/78 Pulse Oximetry 99 98 03/19/18 03:55 03/19/18 07:11 Temperature 98.3 F 98.4 F Pulse Rate 101 H 87 Respiratory Rate 16 18 Blood Pressure 120/78 132/76 Pulse Oximetry 97 97 Intake & Output 03/18/18 03/19/18 03/19/18 18:59 06:59 18:59 Other: # Voids 2 Narrative: GENERAL: Alert, NAD. SKIN: Warm and dry. Multiple skin lesions present including one on the left face. Non-draining. HEAD: Normocephalic. EYES: No scleral icterus. No injection or drainage. NECK: Supple, trachea midline. No JVD or lymphadenopathy. CARDIOVASCULAR: Regular rate and rhythm without murmurs, gallops, or rubs. RESPIRATORY: Breath sounds equal bilaterally. No accessory muscle use. GASTROINTESTINAL: Abdomen soft, non-tender, nondistended. MUSCULOSKELETAL: No cyanosis, or edema. BACK: Nontender without obvious deformity. No CVA tenderness. Results - Labs CBC & Chem 7: 03/19/18 06:00 03/19/18 06:00 Laboratory Results - last 24 hr 03/18/18 03/18/18 03/18/18 15:25 15:25 15:25 WBC 5.7 RBC 4.55 Hgb 13.7 Hct 38.9 MCV 85.6 MCH 30.2 MCHC 35.3 RDW 13.1 Plt Count 200 MPV 8.9 Neut % (Auto) 64.1 Lymph % (Auto) 24.9 [place] % (Auto) 8.6 H Eos % (Auto) 2.1 Baso % (Auto) 0.3 Neut # (Auto) 3.7 Lymph # (Auto) 1.4 [place] # (Auto) 0.5 Eos # (Auto) 0.1 Baso # (Auto) 0.0 WBC Differential . Differential Comment Auto diff final Sodium Potassium Chloride Carbon Dioxide Anion Gap BUN Creatinine Estimated GFR Random Glucose Lactic Acid 0.8 Calcium Ammonia 53 H 03/19/18 03/19/18 06:00 06:00 WBC 4.2 RBC 4.59 Hgb 13.4 Hct 39.8 MCV 86.8 MCH 29.3 MCHC 33.7 RDW 13.4 Plt Count 184 MPV 9.1 Neut % (Auto) 58.0 Lymph % (Auto) 26.8 [place] % (Auto) 11.6 H Eos % (Auto) 3.3 Baso % (Auto) 0.3 Neut # (Auto) 2.4 Lymph # (Auto) 1.1 [place] # (Auto) 0.5 Eos # (Auto) 0.1 Baso # (Auto) 0.0 WBC Differential . Differential Comment Auto diff final Sodium 144 Potassium 3.5 D Chloride 110 H Carbon Dioxide 24.8 Anion Gap 9 BUN 8 Creatinine 0.59 Estimated GFR Greater than 89 Random Glucose 103 Lactic Acid Calcium 8.4 L Ammonia - Imaging Chest X-Ray 03/17/18 20:22 CONCLUSION: No active disease. Assessment and Plan - Plan Ms. Goodwin is a 27-year-old female with a history of polysubstance abuse who was admitted to the hospital due to acute mental status change. She relapsed using IV drug use after 4 months. Urine drug screen was positive for opioids, amphetamines, cocaine. Acute encephalopathy - Much more alert today. -Psychiatry evaluated patient and lifted Lopez act. Multiple skin lesions - Will continue patient on Mupirocin 2% BID. Polysubstance abuse IVDU - Currently afebrile - Blood cultures pending but I called microbiology - no growth so far. - If positive, we will pursue endocarditis work up. No heart murmur appreciated. - Patient is interested to go to [facility] for detox. Full code. SCDs. Probable discharge home today.
[2018-03-19 12:02] VITALS: BP 127/78; PULSE 94; RESP 16; TEMP 98.4; O2SAT 97
== END 2018-03-19 14:00 | disposition home or self-care (01) ==
LOC: NEPGCP 20:02 → NEPC 20:02 → NEDA 03-18 11:12 → INTOOBSV 03-18 11:12 → NEPGCP 03-18 12:26
PROVIDERS: ADMIT Hospitalist; ATTEND Hospitalist
DX: F31.9 Bipolar disorder, unspecified; G93.40 Encephalopathy, unspecified; G47.00 Insomnia, unspecified; F41.9 Anxiety disorder, unspecified; F17.210 Nicotine dependence, cigarettes, uncomplicated; L29.9 Pruritus, unspecified; F19.129 Other psychoactive substance abuse with intoxication, unspecified